=== PATIENT | female | born 1950 | race Caucasian/White ===

== ENCOUNTER 2025-06-09 21:20 | Inpatient (IN) | payer MEDICARE, SELFPAY ==
[2025-06-09 21:21] VITALS: BP 119/60; PULSE 102; RESP 18; TEMP 36.3; O2SAT 98; BMI 22.6
--- NOTE | 2025-06-09 22:15 | EKG12_ITS ---
Test Reason : HYPOTENSION Blood Pressure : */* mmHG Vent. Rate : 103 BPM Atrial Rate : 103 BPM P-R Int : 146 ms QRS Dur : 76 ms QT Int : 338 ms P-R-T Axes : 80 53 129 degrees QTcB Int : 442 ms Sinus tachycardia Septal infarct , age undetermined Abnormal ECG Confirmed by PITER LINCOLN, JOYA ([id number]), editor greeting card RIC HAIR ([id number]) on 06/10/2025 8:09:44 AM Referred By: CINDY Confirmed By: JOYA DUMAS MD
[2025-06-09 22:21] VITALS: BP 117/55; PULSE 99; RESP 16; O2SAT 98
[2025-06-09 22:42] LABS: Hematocrit 35.8 % (37-47); Hemoglobin 12.3 g/dL (12.0-15.0); Immature Granulocytes Count 0.670 X10^3/uL (0.0-0.0); Mean Corp Hgb Conc 34.4 g/dL (32-36); Mean Corpuscular Volume 95.0 fL (81-99); Mean Platelet Vol. 11.3 fl (6.2-12.0); NRBC Flagged by Analyzer 0.2 % (0-5); POSITIVE DIFFERENTIAL YES; Platelet Count 108 K/mm3 (150-450); RBC Distribution Width CV 16.0 % (11.6-14.6); RBC Distribution Width SD 56.0 fl (35.1-43.9); Red Blood Count 3.77 M/mm3 (4.2-5.4); White Blood Count 15.5 K/mm3 (4.4-11.0)
[2025-06-09] MEDS: 0.9% Normal Saline (1000mL) 1,000 ML 1000 ML IV (22:45)
[2025-06-09 22:46] LABS: Differential Indicated SCAN CRITERIA MET
--- NOTE | 2025-06-09 22:48 | RAD_ITS ---
PROCEDURE: CHEST PA AND LATERAL 06/09/2025 REASON FOR EXAM: WEAKNESS TECHNIQUE: Procedure Code: RADCXR Modality: DX Procedure: CHEST PA AND LATERAL FINDINGS: The heart is normal in size. Left upper lobe calcified granuloma. Lungs are otherwise clear. No acute osseous abnormalities. Surgical clips overlie the right chest. RAD/Chest PA and Lateral IMPRESSION: NO ACUTE FINDINGS. Reading Location: [id number]
[2025-06-09 23:00] VITALS: BP 132/59; PULSE 98; O2SAT 99
--- NOTE | 2025-06-09 23:00 | EX.ED.DYSGE1 ---
HPI History of Present Illness Chief Complaint: Hypotension Informant: patient Narrative Narrative: Patient is a 74-year-old female with history of of neuropathy, hypertension and ITP (follows with Dr. Martínez) who currently is on a steroid taper. She is presenting with worsening generalized weakness and tremor. She states that for the past 3 days she has had low blood pressures (blood pressure earlier today was 100/49). She does not have any energy and is very fatigued. She states she intermittently feels lightheaded. Denies any near syncopal episodes. notes that she does not drink much water but has been drinking sodas and coffee. She states that today her hands have been very shaky especially when she tries to do anything. She has a hard time walking and feels that her leg is going to give out on her. She denies any falls or head injuries. She denies any fevers but does report chills. Denies any chest pain, acute cough, URI symptoms, rash, abnormal bleeding, and GI or symptoms. Is currently on steroid taper as her platelets have been responding. Has been on steroids for couple months now because of her ITP. [facility] Medical History Smoker Neuropathy Hypertension Hx of bladder cancer Hx of breast cancer Home Medications ?Medication ?Instructions ?Recorded ?Last Taken ?Type amlodipine 5 mg tablet 5 mg PO DAILY 06/09/25 Unknown History dexamethasone 4 mg tablet 4 mg PO DAILY 06/09/25 Unknown History folic acid 1 mg tablet 1 mg PO DAILY 06/09/25 Unknown History gabapentin 300 mg capsule 600 mg PO QHS 06/09/25 Unknown History hydrochlorothiazide 12.5 mg tablet 12.5 mg PO DAILY 06/09/25 Unknown History hydrocodone-acetaminophen 5-325mg 1 tab PO QHS 06/09/25 Unknown History 5mg-325mg lisinopril 40 mg tablet 40 mg PO DAILY 06/09/25 Unknown History Allergy/AdvReac Type Severity Reaction Status Date / Time Sulfa (Sulfonamide Allergy Swelling Verified 06/09/25 21:21 Antibiotics) Surgical History Hx of hysterectomy Hx of mastectomy Social History Smoking Status: Current every day smoker tobacco type: cigarettes ROS ROS ED Constitutional Constitutional ED: Reports chills; Denies fever(s) or sweats Cardiovascular Cardiovascular: Denies chest pain Respiratory/Chest Respiratory/Chest: Denies cough or dyspnea Gastrointestinal Gastrointestinal: Denies nausea or vomiting Musculoskeletal Musculoskeletal: Denies arthralgias or myalgias Integumentary Denies rash Neurologic Neurologic: Reports weakness; Denies headache(s) Psychiatric Psychiatric: Denies anxiety or depression Hematologic/Lymphatic Hematologic/Lymphatic: Reports easy bruising EXAM Physical Exam Const Vital Signs: 06/09/25 21:21 06/09/25 21:36 06/09/25 22:21 Temperature 97.4 F L Temperature Source Oral Pulse Rate 102 H 99 Respiratory Rate 18 16 Respiratory Effort Short of Breath Labored Respiratory Pattern Tachypnea Blood Pressure 119/60 117/55 L Blood Pressure Mean 79 75 Pulse Ox 98 98 Oxygen Delivery Method Room Air 06/09/25 23:00 06/10/25 00:00 06/10/25 00:26 Temperature 98.5 F Temperature Source Oral Pulse Rate 98 102 H 107 H Respiratory Rate 18 16 Respiratory Effort Respiratory Pattern Blood Pressure 132/59 H 127/52 H 127/52 H Blood Pressure Mean 83 77 77 Pulse Ox 99 98 98 Oxygen Delivery Method Room Air Room Air Room Air Positive well nourished and well developed General Appearance ED: well developed and NAD HEENT Reports moist mucous membranes Neck supple Chest Wall inspection of chest normal and palpation of chest normal Resp normal respiratory effort and clear to auscultation bilaterally Cardio regular rhythm and no murmurs Rate: tachycardic GI normal to inspection, nondistended, normoactive bowel sounds and non-tender Extremity normal to inspection Neuro oriented x3 Sensorium / Orientation: alert Motor Exam: general weakness Psych mental status grossly normal Skin no rashes or lesions noted and no wounds MDM MDM MDM Narrative Medical decision making narrative: Patient Biba for chills and generalized weakness as well as low blood pressure at home this been progressive the past few days. She is steroid-dependent but currently on a taper for ITP. Denies any other real systemic symptoms. Differential includes adrenal insufficiency, sepsis, infection, hypovolemia, medication reaction, NIDHI, thyroid dysfunction and electrolyte derangement as well as primary cardiac process or pulmonary emboli. Patient is given a liter of IV fluids in the emergency room as she is mildly tachycardic and reports low blood pressures at home. CBC does show leukocytosis with left shift and mild thrombocytopenia (platelets of 108). Unclear if this is secondary to her chronic steroids or acute infection. CMP largely normal. Lactate is elevated at 2.1. High-sensitivity troponin 79 and a repeat however it is 74. D-dimer is added on given elevated troponin, hypotension and tachycardia Patient denies any shortness of breath or chest discomfort/dyspnea on exertion. This is normal for low respiration for PE. Urinalysis is highly consistent with urinary tract infection with positive nitrates, 10-25 white blood cells and 4+ bacteria. Urine culture and blood cultures are sent. Patient started on IV Rocephin given additional liter of IV fluids and given her home [place]. Suspect she has urinary tract infection possible sepsis that is causing her acute presentation. Is given a stress dose of Solu-Cortef given that she is steroid-dependent currently. Case discussed with hospitalist, Dr. Hurtado for admission. Lab Data Attestation: I reviewed the patient's lab results. Labs: Laboratory Results - last 24 hr 06/09/25 06/09/25 06/09/25 21:40 22:38 23:53 WBC 15.5 H RBC 3.77 L Hgb 12.3 Hct 35.8 L MCV 95.0 MCH 32.6 H MCHC 34.4 RDW Std Deviation 56.0 H RDW Coeff of Avinash 16.0 H Plt Count 108 L MPV 11.3 Immature Gran % (Auto) 4.300 H Neut % (Auto) 62.2 Lymph % (Auto) 20.3 [place] % (Auto) 12.6 H Eos % (Auto) 0.1 Baso % (Auto) 0.5 Absolute Neuts (auto) 9.7 H Absolute Lymphs (auto) 3.15 Nucleated RBC % 0.2 Differential Comment SCANNED Platelet Estimate SLT DEC [place] Bodies 1+ D-Dimer Quant (PE/DVT) Sodium 140 Potassium 4.0 Chloride 103 Carbon Dioxide 22.5 Anion Gap 15 BUN 50 H Creatinine 0.98 Estim Creat Clear Calc 37.27 L Est GFR (MDRD) Non-Af 61 BUN/Creatinine Ratio 50.7 H Glucose 190 H Lactic Acid 2.1 H* Calcium 8.3 Total Bilirubin 0.31 AST 26 ALT 51 H Alkaline Phosphatase 84 Troponin T High Sens 79 H* Troponin T Hi Sens 2 Hr Total Protein 6.2 Albumin 3.6 Globulin 2.5 Albumin/Globulin Ratio 1.4 TSH 2.770 Urine Color Yellow Urine Clarity Clear Urine pH 6.0 Ur Specific [place] 1.015 Urine Protein 15 H Urine Glucose (UA) Normal Urine Ketones Negative Urine Occult Blood 50 H Urine Nitrite Positive H Urine Bilirubin Negative Urine Urobilinogen 1 H Ur Leukocyte Esterase 25 H Urine RBC 0-5 SEEN Urine WBC 10-25 SEEN Ur Squamous Epith Cells 5-10 SEEN Urine Bacteria 4+ Hyaline Casts 0-5 SEEN Urine Mucus 0 SEEN 06/09/25 23:58 WBC RBC Hgb Hct MCV MCH MCHC RDW Std Deviation RDW Coeff of Avinash Plt Count MPV Immature Gran % (Auto) Neut % (Auto) Lymph % (Auto) [place] % (Auto) Eos % (Auto) Baso % (Auto) Absolute Neuts (auto) Absolute Lymphs (auto) Nucleated RBC % Differential Comment Platelet Estimate [place] Bodies D-Dimer Quant (PE/DVT) 0.47 Sodium Potassium Chloride Carbon Dioxide Anion Gap BUN Creatinine Estim Creat Clear Calc Est GFR (MDRD) Non-Af BUN/Creatinine Ratio Glucose Lactic Acid Calcium Total Bilirubin AST ALT Alkaline Phosphatase Troponin T High Sens Troponin T Hi Sens 2 Hr 74 H* Total Protein Albumin Globulin Albumin/Globulin Ratio TSH Urine Color Urine Clarity Urine pH Ur Specific [place] Urine Protein Urine Glucose (UA) Urine Ketones Urine Occult Blood Urine Nitrite Urine Bilirubin Urine Urobilinogen Ur Leukocyte Esterase Urine RBC Urine WBC Ur Squamous Epith Cells Urine Bacteria Hyaline Casts Urine Mucus Radiography Chest X-Ray - ED: 2 View, Read by ED Physician, Read by Radiologist and No Acute Disease Diagnostic Testing: Clinical Impression(s) from Imaging Studies Chest X-Ray 06/09/25 22:48 IMPRESSION: NO ACUTE FINDINGS. Reading Location: [id number] Rhythm Strip Rhythm Strip: Sinus Rhythm Rate: 103 Ectopy: None EKG Initial EKG: Attestation: I personally reviewed and interpreted this EKG as follows: Interpretation: Sinus Tachycardia Comments: Sinus tachycardia rate of 103 bpm Normal axis Normal intervals T wave inversions in V5, V6, 1 and aVL as well as inferior leads with no reciprocal changes. No prior EKG available for comparison Management Discussion w/another healthcare provider: Hospitalist Discharge Plan Dx/Rx/DC Orders Clinical Impression: Urinary tract infection, Sepsis, Generalized weakness, Steroid dependence, History of ITP, Elevated troponin level Disposition Disposition: Acute Care Hospital [facility]
[2025-06-09 23:17] LABS: AST(SGOT) 26 U/L (<=31); Alanine Aminotransfer ALT/SGPT 51 U/L (<=34); Albumin, Serum 3.6 g/dL (3.4-4.8); Alkaline Phosphatase 84 U/L (35-104); Anion Gap 15 (5-15); BUN 50 mg/dL (4-19); BUN/Creat Ratio 50.7 RATIO (10-20); Calcium,Total 8.3 mg/dL (7.6-11.0); Carbon Dioxide 22.5 mmol/L (21.0-32.0); Chloride 103 mmol/L (98-108); Estimated Creatinine Clearance 37.27 ml/min (50-250); Globulin 2.5 g/dL (2.2-4.2); Glucose 190 mg/dL (70-99); Potassium 4.0 mmol/L (3.3-5.1)
--- NOTE | 2025-06-09 23:21 | ED.RN ---
Critical lactic acid of 2.[address] Fonseca notified.
[2025-06-09 23:25] LABS: Troponin T High Sensitivity 79 ng/L (<=14)
[2025-06-09 23:27] LABS: Differential Comment SCANNED; Howell-Jolly Body 1+
[2025-06-09 23:57] LABS: Mucous, Urine 0 SEEN /hpf (<or=2+)
[2025-06-10] VITALS (9 sets, daily range): BP systolic 98–142; BP diastolic 52–76; PULSE 76–107; RESP 16–24; TEMP 36.3–36.9; O2SAT 98–100; BMI 23.2
[2025-06-10 00:04] LABS: Color, Urine Yellow (Yellow); Glucose, Dipstick Normal (Normal); Ketone-Dipstick Negative (Negative); Leukocyte Esterase-Dipstick 25 /ul (Negative); Nitrite-Dipstick Positive (Negative); Occult Blood-Urine 50 /ul (Negative); Protein-Dipstick 15 mg/dl (Negative); Specific Gravity, Urine 1.015 (1.002-1.030); Urine Bilirubin Dipstick Negative (Negative)
[2025-06-10 00:15] LABS: Red Blood Cells-Urine 0-5 SEEN /hpf (0-5); Squamous Epithelial Cells - UA 5-10 SEEN /hpf (5-10)
[2025-06-10 00:21] LABS: D-Dimer Quantitative (DVT/PE) 0.47 FEU/ug/m (0.27-0.49)
[2025-06-10 00:37] LABS: Troponin T High Sens 2 HR 74 ng/L (<=14)
[2025-06-10] MEDS: 0.9% Normal Saline (1000mL) 1,000 ML 999 ML IV (00:53)
[2025-06-10] MEDS: HYDROcodone Bitartrate/Apap 5/325 Tablet PO (00:57)
--- NOTE | 2025-06-10 01:28 | HP.PCM_ITS ---
[facility] - General General Date of Admission: 06/10/25 Date of Service: 06/10/25 Chief Complaint: Generalized weakness and tremor [facility] Narrative ASHLIE RODARTE, is a 74 F who presents to the emergency room with chief complaint of generalized weakness and tremor. Patient has significant past medical history of neuropathy, hypertension and idiopathic thrombocytopenic purpura (and is followed by Dr. Martínez). Patient has been on a recent steroid taper over the past several weeks. As a result patient is experiencing fatigue and loss of energy and intermittently feels lightheaded. The patient denies having any episodes of syncope. She complains of shakiness in her hands especially when she is intentional about moving her hands. At times she has felt as if her legs were getting give out on her due to the weakness. She denies any falls or head injuries and denies any fevers but has had some chills. Patient denies any chest pain, shortness of breath, rash or any GI or genitourinary symptoms. She has been on steroids for the past several months due to ITP when her platelets were down in the 30s. Laboratory studies reveal white blood cell count of 15.5, hemoglobin 12.3, hematocrit 35.0, platelets 108, sodium 140, potassium 4.0, chloride 103, bicarb 22.5, BUN 50, creatinine 1.98, glucose 190, lactate 2.1, troponin 79, troponin 74, TSH 2.7. Chest x-ray is negative for any acute findings, blood cultures were drawn x 2 and urinary analysis was positive for nitrites and 4+ bacteria. Patient will be admitted to the PCU and treated for urinary tract infection and suspected adrenal insufficiency. [facility] Medical History Smoker Neuropathy Hypertension Hx of bladder cancer Hx of breast cancer Home Medications ?Medication ?Instructions ?Recorded ?Last Taken ?Type amlodipine 5 mg tablet 5 mg PO DAILY 06/09/25 Unkno wn History dexamethasone 4 mg tablet 4 mg PO DAILY 06/09/25 Unkno wn History folic acid 1 mg tablet 1 mg PO DAILY 06/09/25 Unkno wn History gabapentin 300 mg capsule 600 mg PO QHS 06/09/25 Unkno wn History hydrochlorothiazide 12.5 mg tablet 12.5 mg PO DAILY Unknown History hydrocodone-acetaminophen 5-325mg 1 tab PO QHS 5 Unknown History 5mg-325mg lisinopril 40 mg tablet 40 mg PO DAILY 06/09/25 Unkn own History Allergy/AdvReac Type Severity Reaction Status Date / Time Sulfa (Sulfonamide Allergy Swelling Verified 06/09/25 21:21 Antibiotics) Surgical History Hx of hysterectomy Hx of mastectomy Social History Smoking Status: Current every day smoker tobacco type: cigarettes ROS Constitutional Constitutional: Reports chills and weakness; Denies fever(s) Eyes Eyes: Denies blurry vision ENT HEENT: Denies abnormal hearing Cardiovascular Cardiovascular: Denies chest pain or syncope Respiratory/Chest Respiratory/Chest: Denies shortness of breath at rest Gastrointestinal Gastrointestinal: Denies abdominal pain Genitourinary Genitourinary: Reports urinary frequency; Denies dysuria Musculoskeletal Musculoskeletal: Denies back pain Integumentary Integumentary: Denies dry skin Neurologic Neurologic: Denies abnormal speech Psychiatric Psychiatric: Denies anxiety Vital Signs Vital Signs Vital Signs: 06/09/25 21:21 06/09/25 21:36 06/09/25 22:21 Temperature 97.4 F L Temperature Source Oral Pulse Rate 102 H 99 Respiratory Rate 18 16 Respiratory Effort Short of Breath Labored Respiratory Pattern Tachypnea Blood Pressure 119/60 117/55 L Blood Pressure Mean 79 75 Pulse Ox 98 98 Oxygen Delivery Method Room Air 06/09/25 23:00 06/10/25 00:00 06/10/25 00:26 Temperature 98.5 F Temperature Source Oral Pulse Rate 98 102 H 107 H Respiratory Rate 18 16 Respiratory Effort Respiratory Pattern Blood Pressure 132/59 H 127/52 H 127/52 H Blood Pressure Mean 83 77 77 Pulse Ox 99 98 98 Oxygen Delivery Method Room Air Room Air Room Air 06/10/25 00:55 06/10/25 01:00 Temperature 98.5 F Temperature Source Pulse Rate 107 H 91 Respiratory Rate 16 20 H Respiratory Effort Respiratory Pattern Blood Pressure 127/52 H 113/57 L Blood Pressure Mean 77 75 Pulse Ox 98 100 Oxygen Delivery Method Room Air Weight Weight: 116 lb Body Mass Index (BMI) 22.6 Physical Exam Const alert, oriented x3 and no apparent distress General Appearance: cooperative and well developed HEENT normocephalic and head/scalp atraumatic Eyes PERRL Neck no lymphadenopathy Lymph Lymphatic: no lymphadenopathy noted Resp normal respiratory effort, normal air movement and clear to auscultation bilaterally Cardio regular rate, regular rhythm, S1 normal heart sound, S2 normal heart sound and no murmurs GI normal to inspection, nondistended, normoactive bowel sounds, soft to palpation and non-tender Extremity normal capillary refill Skin General Skin Exam: no breakdown Neuro no focal motor deficits and no sensory deficits noted Psych thought process normal, cooperative and affect normal Results Lab / Micro Data 06/09/25 21:40 06/09/25 21:40 Labs: Laboratory Results - last 24 hr 06/09/25 21:40: WBC 15.5 H, RBC 3.77 L, Hgb 12.3, Hct 35.8 L, MCV 95.0, MCH 32.6 H, MCHC 34.4, RDW Std Deviation 56.0 H, RDW Coeff of Avinash 16.0 H, Plt Count 108 L , MPV 11.3, Immature Gran % (Auto) 4.300 H, Neut % (Auto) 62.2, Lymph % (Auto) 20.3, [place] % (Auto) 12.6 H, Eos % (Auto) 0.1, Baso % (Auto) 0.5, Absolute Neuts (auto) 9.7 H, Absolute Lymphs (auto) 3.15, Nucleated RBC % 0.2, Differential Comment SCANNED, Platelet Estimate SLT DEC, [place] Bodies 1+, Sodium 140, Potassium 4.0, Chloride 103, Carbon Dioxide 22.5, Anion Gap 15, BUN 50 H, Creatinine 0.98, Estim Creat Clear Calc 37.27 L, Est GFR (MDRD) Non-Af 61, B UN/Creatinine Ratio 50.7 H, Glucose 190 H, Calcium 8.3, Total Bilirubin 0.31, AST 26, ALT 51 H, Alkaline Phosphatase 84, Troponin T High Sens 79 H*, Total Protein 6.2, Albumin 3.6, Globulin 2.5, Albumin/Globulin Ratio 1.4, TSH 2.770 06/09/25 22:38: Lactic Acid 2.1 H* 06/09/25 23:53: Urine Color Yellow, Urine Clarity Clear, Urine pH 6.0, Ur Specific [place] 1.015, Urine Protein 15 H, Urine Glucose (UA) Normal, Urine Ketones Negative, Urine Occult Blood 50 H, Urine Nitrite Positive H, Urine Bilirubin Negative, Urine Urobilinogen 1 H, Ur Leukocyte Esterase 25 H, Urine RBC 0-5 SEEN, Urine WBC 10-25 SEEN, Ur Squamous Epith Cells 5-10 SEEN, Urine Bacteria 4+, Hyaline Casts 0-5 SEEN, Urine Mucus 0 SEEN 06/09/25 23:58: D-Dimer Quant (PE/DVT) 0.47, Troponin T Hi Sens 2 Hr 74 H* Rhythm Strip Rhythm Strip: Sinus Rhythm Rate: 103 Ectopy: None Imaging Radiology Impression Chest X-Ray 06/09/25 22:48 IMPRESSION: NO ACUTE FINDINGS. Reading Location: [facility] [address] Assessment & Plan Assessment/Plan (1) Elevated troponin level: (2) History of ITP: (3) Steroid dependence: (4) Generalized weakness: (5) Sepsis: (6) Urinary tract infection: PLAN: Plan 1 urinary tract infection with sepsis?admit patient to PCU continue volume replacement, continue Rocephin 1 g IV every 24 hours, repeat CBC BMP in a.m. 2. Steroid dependence?recent steroid taper?patient to receive dose of steroids in the emergency department and then may resume current steroid taper 3. Elevated troponin?patient is asymptomatic with no chest pain at present time we will continue to cycle cardiac enzymes, will not use aspirin due to platelet disorder. If troponins increase consider cardiology consultation 4. history of ITP?continue steroids and monitor CBC 5. DVT prophylaxis?SCDs 6. CODE STATUS full verified Charges/Coding Visit Charges Inpatient E&M: 85857 Init Hosp L2
[2025-06-10 01:35] LABS: Reflex Lactate? Y
[2025-06-10] MEDS: fentaNYL 100 MCG/2 ML Ampul 25 MCG IV (01:40)
[2025-06-10 01:48] LABS: CPK Total, Creatine Kinase 35 U/L (24-195)
[2025-06-10 02:24] LABS: Troponin T High Sens 4 HR 82 ng/L (<=14)
[2025-06-10] MEDS: 0.9% Normal Saline (1000mL) 1,000 ML 125 ML IV ×3 (02:43→22:49)
--- NOTE | 2025-06-10 03:33 | NURSING ---
patient states she is very dizzy when up made her bedrest for the night. purewick in place.
[2025-06-10 06:01] LABS: Hematocrit 26.6 % (37-47); Hemoglobin 9.4 g/dL (12.0-15.0); Immature Granulocytes Count 0.520 X10^3/uL (0.0-0.0); Mean Corp Hgb Conc 35.3 g/dL (32-36); Mean Corpuscular Volume 92.7 fL (81-99); Mean Platelet Vol. 11.1 fl (6.2-12.0); NRBC Flagged by Analyzer 0.2 % (0-5); POSITIVE COUNT YES; POSITIVE DIFFERENTIAL YES; Platelet Count 73 K/mm3 (150-450); RBC Distribution Width CV 16.0 % (11.6-14.6); RBC Distribution Width SD 54.3 fl (35.1-43.9); Red Blood Count 2.87 M/mm3 (4.2-5.4); White Blood Count 12.5 K/mm3 (4.4-11.0)
[2025-06-10 06:04] LABS: Differential Indicated SCAN CRITERIA MET
[2025-06-10 06:38] LABS: Anion Gap 12 (5-15); BUN 31 mg/dL (4-19); BUN/Creat Ratio 50.5 RATIO (10-20); Calcium,Total 7.1 mg/dL (7.6-11.0); Carbon Dioxide 18.8 mmol/L (21.0-32.0); Chloride 108 mmol/L (98-108); Estimated Creatinine Clearance 45.66 ml/min (50-250); Glucose 149 mg/dL (70-99); Potassium 3.7 mmol/L (3.3-5.1)
[2025-06-10 07:21] LABS: Differential Comment SCANNED
--- NOTE | 2025-06-10 07:57 | ECHOCS_ITS ---
Reason For Study Reason For Study: Elevated Troponins Procedure This was a 2D Doppler, Color Flow transthoracic echocardiogram. The study was technically difficult. Contrast injection was performed. Exam performed portable in patient room. Left Ventricle Normal LV size. Left ventricular systolic function is normal. The left ventricular ejection fraction is 60 %. No regional wall motion abnormalities noted. Right Ventricle Normal RV size. Normal systolic function. Atria Normal left atrium. Normal right atrium. Mitral Valve Normal mitral valve. Tricuspid Valve Normal tricuspid valve. Aortic Valve Normal aortic valve. Mild (1+) aortic valve insufficiency. Pulmonic Valve Normal pulmonic valve. Great Vessels Normal aortic root. The pulmonary artery is normal size. Inferior vena cava collapse with respiration. Pericardium/Pleural No pericardial effusion. Medication Diluted definity 2ml given slow IV push to enhance endocardial definition. MMode/2D Measurements & Calculations LVIDd: 3.0 cm IVSd: 0.91 cm Ao root diam: 2.8 cm LVIDs: 2.1 cm LVPWd: 1.1 cm RVDd: 2.8 cm FS: 29.2 % LAV(MOD-bp): 43.4 ml LVAd ap4: 21.7 cm2 SV(MOD-sp4): 36.7 ml LAV(MOD-bp) Indexed: 29.1 ml/m2 LVLd ap4: 6.7 cm SI(MOD-sp4): 24.6 ml/m2 LAV(MOD-sp2): 33.6 ml EDV(MOD-sp4): 57.0 ml LAV(MOD-sp4): 42.2 ml EDV(sp4-el): 59.9 ml LVAs ap4: 11.8 cm2 LVLs ap4: 5.6 cm ESV(MOD-sp4): 20.4 ml ESV(sp4-el): 21.0 ml EF(MOD-sp4): 64.3 % EF(sp4-el): 64.9 % SV(sp4-el): 38.9 ml LA A4 area: 17.2 cm2 LA dimension(2D): 2.8 cm TAPSE: 2.4 cm Time Measurements MV dec time: 0.29 sec Doppler Measurements & Calculations MV E max nehemias: 65.9 cm/sec Lat Peak E' Nehemias: 4.2 cm/sec Med Peak E' Nehemias: 5.0 cm/sec MV A max nehemias: 95.8 cm/sec E/E' lat: 15.7 E/E' med: 13.3 MV E/A: 0.69 MV V2 max: 111.7 cm/sec MV P1/2t max nehemias: 88.0 cm/sec Ao V2 max: 119.1 cm/sec MV max P.0 mmHg MV P1/2t: 101.2 msec Ao max P.7 mmHg MV V2 mean: 57.8 cm/sec MV mean P.6 mmHg MV dec slope: 254.6 cm/sec2 MV V2 VTI: 27.4 cm MVA(P1/2t): 2.2 cm2 LV V1 max: 115.1 cm/sec PA V2 max: 129.4 cm/sec LV V1 max P.3 mmHg ECHO/Echo Complete W/ Contrast Interpretation Summary Normal LV size. Left ventricular systolic function is normal. The left ventricular ejection fraction is 60 %. Mild (1+) aortic valve insufficiency. Contrast injection was performed. Ordering Physician: Snehal Almonte Performed By: Walter Batres RCS
--- NOTE | 2025-06-10 10:15 | RAD_ITS ---
PROCEDURE: KNEE 4 OR MORE VIEWS 06/10/2025 REASON FOR EXAM: PAIN No known injury. TECHNIQUE: Procedure Code: RADKN Modality: DX Procedure: KNEE 4 OR MORE VIEWS Both left and right knees where imaged, with four view right knee and four view left knee obtained. COMPARISON: None. RAD/Knee 4 or More Views IMPRESSION: No joint effusion is seen on either side. Mild degenerative changes seen of the bilateral proximal tibiofibular articulat ion. Mild tricompartmental degenerative changes are seen bilaterally, but without significant associated joint space narrowing. The greatest degree of degenerative changes probably at the left patellofemoral articulation. Satisfactory osseous alignment is seen. No evidence of inflammatory arthritis. No fracture or dislocation is seen. Reading Location: [id number]
--- NOTE | 2025-06-10 10:15 | RAD_ITS ---
PROCEDURE: KNEE 4 OR MORE VIEWS 06/10/2025 REASON FOR EXAM: PAIN No known injury. TECHNIQUE: Procedure Code: RADKN Modality: DX Procedure: KNEE 4 OR MORE VIEWS Both left and right knees where imaged, with four view right knee and four view left knee obtained. COMPARISON: None. RAD/Knee 4 or More Views IMPRESSION: No joint effusion is seen on either side. Mild degenerative changes seen of the bilateral proximal tibiofibular articulat ion. Mild tricompartmental degenerative changes are seen bilaterally, but without significant associated joint space narrowing. The greatest degree of degenerative changes probably at the left patellofemoral articulation. Satisfactory osseous alignment is seen. No evidence of inflammatory arthritis. No fracture or dislocation is seen. Reading Location: [id number]
--- NOTE | 2025-06-10 15:34 | CASEMGMT ---
CLARA LOREDO Assessment: Face to Face with pt for initial transition planning/care coordination assessment. RN GERTRUDE introduced self and role at [facility], pt voices understanding and consents to assessment. Pt is A&O x4 and answers all questions appropriately at this time. Pt sitting up in chair in no distress. Significant other in the room, pt agreeable to DC planning with significant other in the room. Care providers, pharmacy, and demographics verified/updated. Strata: 1 Admitting Dx: UTI suspected adrenal PCP: Josef Specialists: Roblero - Arthritis; Mauricio, Hematology Preferred Pharmacy: [facility] Insurance: [place] [employer] Prescription Benefit: yes LNOK: Sig Other, Gregor Living Arrangements: Pt lives with significant other in a camper with 3 steps to enter. ADLs: Pt states I with ADLs and IADLs. Transportation: Pt drives self and denies concerns with transportation. DME: Cane, walker HHC/SNF: Denies Hx of Pt states no concerns with going home at time of dc. Pt states no further concerns/needs. CM to follow. Advised pt to ask CM if any further question/concerns/needs arise, voices understanding. Pt Goal: Home Plan: Home with family support. Maria C ELIZABETH CM
--- NOTE | 2025-06-10 16:01 | PCM.PROGNOTE ---
Subjective Subjective Patient seen and examined with her nurse by her bedside. Her was by her bdside. She was complaining of pain in her knees. She was moaning and writhing in pain. She kept saying she had knee pain, though she was able to move her legs at the knees without pain. Unable to do review of systems as she still complains of pain in the knee and was writhing in pain so couldnt really answering questions. Objective Data Objective Data Vital Signs: Vital Signs Temp Pulse Resp BP Pulse Ox O2 Del Method 97.5 F L 90 16 109/59 L 98 Room Air 06/10/25 14:55 06/10/25 14:55 06/10/25 14:55 06/10/25 14:55 06/10/25 14:55 06/10/25 14:55 Oxygen Delivery Method Room Air Weight: 118 lb 13.266 oz Body Mass Index (BMI) 23.2 Intake & Output: Intake and Output for Last 24 Hours 06/08/25 06/09/25 06/10/25 23:59 23:59 23:59 Intake Total 3350 / 3350 Balance 3350 / 3350 Lab / Micro Data 06/10/25 05:22 06/10/25 05:22 Labs: Laboratory Results - last 24 hr 06/09/25 21:38: Lactic Acid 2.1 H* 06/09/25 21:40: WBC 15.5 H, RBC 3.77 L, Hgb 12.3, Hct 35.8 L, MCV 95.0, MCH 32.6 H, MCHC 34.4, RDW Std Deviation 56.0 H, RDW Coeff of Avinash 16.0 H, Plt Count 108 L, MPV 11.3, Immature Gran % (Auto) 4.300 H, Neut % (Auto) 62.2, Lymph % (Auto) 20.3, [place] % (Auto) 12.6 H, Eos % (Auto) 0.1, Baso % (Auto) 0.5, Absolute Neuts (auto) 9.7 H, Absolute Lymphs (auto) 3.15, Nucleated RBC % 0.2, Differential Comment SCANNED, Platelet Estimate SLT DEC, [place] Bodies 1+, Sodium 140, Potassium 4.0, Chloride 103, Carbon Dioxide 22.5, Anion Gap 15, BUN 50 H, Creatinine 0.98, Estim Creat Clear Calc 37.27 L, Est GFR (MDRD) Non-Af 61, BUN/Creatinine Ratio 50.7 H, Glucose 190 H, Calcium 8.3, Total Bilirubin 0.31, AST 26, ALT 51 H, Alkaline Phosphatase 84, Troponin T High Sens 79 H*, Total Protein 6.2, Albumin 3.6, Globulin 2.5, Albumin/Globulin Ratio 1.4, TSH 2.770 06/09/25 23:53: Urine Color Yellow, Urine Clarity Clear, Urine pH 6.0, Ur Specific [place] 1.015, Urine Protein 15 H, Urine Glucose (UA) Normal, Urine Ketones Negative, Urine Occult Blood 50 H, Urine Nitrite Positive H, Urine Bilirubin Negative, Urine Urobilinogen 1 H, Ur Leukocyte Esterase 25 H, Urine RBC 0-5 SEEN, Urine WBC 10-25 SEEN, Ur Squamous Epith Cells 5-10 SEEN, Urine Bacteria 4+, Hyaline Casts 0-5 SEEN, Urine Mucus 0 SEEN 06/09/25 23:58: D-Dimer Quant (PE/DVT) 0.47, Total Creatine Kinase 35, Troponin T Hi Sens 2 Hr 74 H* 06/10/25 01:41: Lactic Acid 1.6, Troponin T Hi Sens 4Hr 82 H* 06/10/25 05:22: WBC 12.5 H, RBC 2.87 L, Hgb 9.4 L, Hct 26.6 L, MCV 92.7, MCH 32.8 H, MCHC 35.3, RDW Std Deviation 54.3 H, RDW Coeff of Avinash 16.0 H, Plt Count 73 L, MPV 11.1, Immature Gran % (Auto) 4.200 H, Neut % (Auto) 67.9, Lymph % (Auto) 15.3 L, [place] % (Auto) 12.3 H, Eos % (Auto) 0.1, Baso % (Auto) 0.2, Absolute Neuts (auto) 8.5 H, Absolute Lymphs (auto) 1.91, Nucleated RBC % 0.2, Differential Comment SCANNED, Platelet Estimate MKD DEC, Sodium 139, Potassium 3.7, Chloride 108, Carbon Dioxide 18.8 L, Anion Gap 12, BUN 31 H, Creatinine 0.61 L, Estim Creat Clear Calc 45.66 L, Est GFR (MDRD) Non-Af 95, BUN/Creatinine Ratio 50.5 H, Glucose 149 H, Calcium 7.1 L Radiography Diagnostic Testing: Radiology Impression Chest X-Ray 06/09/25 22:48 IMPRESSION: NO ACUTE FINDINGS. Reading Location: [id number] Echocardiogram 06/10/25 07:57 Interpretation Summary Normal LV size. Left ventricular systolic function is normal. The left ventricular ejection fraction is 60 %. Mild (1+) aortic valve insufficiency. Contrast injection was performed. Ordering Physician: Snehal Almonte Performed By: Walter Batres RCS Knee X-Ray 06/10/25 10:15 IMPRESSION: No joint effusion is seen on either side. Mild degenerative changes seen of the bilateral proximal tibiofibular articulation. Mild tricompartmental degenerative changes are seen bilaterally, but without significant associated joint space narrowing. The greatest degree of degenerative changes probably at the left patellofemoral articulation. Satisfactory osseous alignment is seen. No evidence of inflammatory arthritis. No fracture or dislocation is seen. Reading Location: [id number] Knee X-Ray 06/10/25 10:15 IMPRESSION: No joint effusion is seen on either side. Mild degenerative changes seen of the bilateral proximal tibiofibular articulation. Mild tricompartmental degenerative changes are seen bilaterally, but without significant associated joint space narrowing. The greatest degree of degenerative changes probably at the left patellofemoral articulation. Satisfactory osseous alignment is seen. No evidence of inflammatory arthritis. No fracture or dislocation is seen. Reading Location: [address] Rhythm Strip Rhythm Strip: Sinus Rhythm Rate: 103 Ectopy: None Physical Exam Const alert Constitutional Narrative: in moderate to severe discomfort due to pain,writhing in discomfort HEENT normocephalic, head/scalp atraumatic, moist oral mucous membranes and oropharynx normal Eyes EOMs intact bilaterally Neck supple and no JVD Resp normal respiratory effort, normal air movement and clear to auscultation bilaterally Cardio regular rate, regular rhythm, S1 normal heart sound, S2 normal heart sound and no murmurs GI normal to inspection, nondistended, normoactive bowel sounds, soft to palpation, non-tender and non-distended Extremity normal capillary refill, no clubbing, cyanosis or edema and no calf tenderness Extremity Narrative: able to flex and extend knee without any discomfort General Extremity: no tenderness to palpation of joints or extremities Skin General Skin Exam: no breakdown Neuro no focal motor deficits and no sensory deficits noted Motor Exam: general weakness Psych Psych Narrative: uncomfortable due to pain Assessment & Plan Assessment/Plan (1) History of ITP: (2) Sepsis: (3) Generalized weakness: (4) Urinary tract infection: PLAN: Plan #Sepsis due to UTI on IV ceftriaxone. Urine cultures ordered and pending. urinalysis showed 4+ bacteria blood cultures also pending wbc is also down to 12.5. #Bilateral Knee pain patient complaining of bilateral knee pain and writhing in pain. given IV morphine 1mg x 1. bilateral knee xray showed no acute pathology PT/OT On board. On PO tylenol, PO oxycodone and IV morphine prn for pain. #Thrombocytopenia: platelets were 108 yesterday, and are down to 73. Will monitor closely. Etiology is unclear. Will monitor closely. If it drops any further will consider hematology consult #Elevated troponin: Initial troponin was 79, and trended up slightly to 82. Denies any chest pain. 2D echo showed EF of 60% with normal LVSF and normal LV size. No need for further workup. #Hypertension: on lisinopril, amlodipine and HCTZ. DVT prophylaxis: SCDs. No anticoagulation due to thrombocytopenia Charges/Coding Visit Charges Inpatient E&M: 54741 Subs Hosp L2
--- NOTE | 2025-06-10 16:17 | CASEMGMT ---
Henri from [facility] called and asked medical questions about pt, he received info from our admissions. RN CM addressed questions.
[2025-06-11 04:16] VITALS: BP 146/75; PULSE 88; RESP 18; TEMP 36.7; O2SAT 99
[2025-06-11 06:18] LABS: Hematocrit 25.2 % (37-47); Hemoglobin 8.9 g/dL (12.0-15.0); Mean Corp Hgb Conc 35.3 g/dL (32-36); Mean Corpuscular Volume 93.3 fL (81-99); Mean Platelet Vol. 11.4 fl (6.2-12.0); POSITIVE COUNT YES; POSITIVE MORPHOLOGY YES; Platelet Count 63 K/mm3 (150-450); RBC Distribution Width CV 16.0 % (11.6-14.6); RBC Distribution Width SD 54.6 fl (35.1-43.9); Red Blood Count 2.70 M/mm3 (4.2-5.4); White Blood Count 9.4 K/mm3 (4.4-11.0)
[2025-06-11 06:22] LABS: Differential Indicated MANUAL DIFF
[2025-06-11] MEDS: 0.9% Normal Saline (1000mL) 1,000 ML 125 ML IV (06:49)
[2025-06-11 06:50] LABS: Neutrophil-Band 2 % (0-5); Neutrophil-Segmented 66 % (47-70); Total Cells Counted 100 (MANUAL DIFF)
[2025-06-11 06:54] LABS: Anisocytosis 1+; Tear Drop Cell RARE
[2025-06-11 07:10] LABS: Anion Gap 10 (5-15); BUN 16 mg/dL (4-19); BUN/Creat Ratio 33.1 RATIO (10-20); Calcium,Total 7.3 mg/dL (7.6-11.0); Carbon Dioxide 19.2 mmol/L (21.0-32.0); Chloride 109 mmol/L (98-108); Estimated Creatinine Clearance 45.66 ml/min (50-250); Glucose 97 mg/dL (70-99); Potassium 3.8 mmol/L (3.3-5.1)
[2025-06-11 08:10] VITALS: BP 142/101; PULSE 85; RESP 18; TEMP 35.9; O2SAT 98
[2025-06-11 11:36] VITALS: O2SAT 99
[2025-06-11 12:20] VITALS: BP 127/57; PULSE 85; RESP 18; TEMP 36.7; O2SAT 100
--- NOTE | 2025-06-11 12:40 | PN_ITS ---
Subjective Subjective Patient seen and examined. She says she feels much better today. She had no active complaints. Her knee pain had improved. However she would like 1 more day to be better optimized. Review of systems otherwise negative. She has remained hemodynamically stable. Objective Data Objective Data Vital Signs: Vital Signs Temp Pulse Resp BP Pulse Ox O2 Del Method 98.0 F 85 18 127/57 H 100 Room Air 06/11/25 12:20 06/11/25 12:20 06/11/25 12:20 06/11/25 12:20 06/11/25 12:20 06/11/25 12:20 Oxygen Delivery Method Room Air Weight: 118 lb 13.266 oz Body Mass Index (BMI) 23.2 Intake & Output: Intake and Output for Last 24 Hours 06/09/25 06/10/25 06/11/25 23:59 23:59 23:59 Intake Total 4900 / 4900 1452.5 / 1452.5 Balance 4900 / 4900 1452.5 / 1452.5 Lab / Micro Data 06/11/25 05:27 06/11/25 05:27 Labs: Laboratory Results - last 24 hr 06/11/25 05:27: WBC 9.4, RBC 2.70 L, Hgb 8.9 L, Hct 25.2 L, MCV 93.3, MCH 33.0 H , MCHC 35.3, RDW Std Deviation 54.6 H, RDW Coeff of Avinash 16.0 H, Plt Count 63 L, MPV 11.4, Neut % (Auto) Not Reportable, Absolute Neuts (auto) 6.4, Absolute Lymphs (auto) 1.79, Total Counted 100, Neutrophils % (Manual) 66, Band Neutrophils % 2, Lymphocytes % (Manual) 19, Monocytes % (Manual) 10, M etamyelocytes % 3 H, Diff Path Review May foll, Platelet Estimate MOD DEC, Anisocytosis 1+, Tear Drop Cells RARE, Ovalocytes 1+, Sodium 138, Potassium 3.8, Chloride 109 H, Carbon Dioxide 19.2 L, Anion Gap 10, BUN 16, Creatinine 0.49 L, Estim Creat Clear Calc 45.66 L, Est GFR (MDRD) Non-Af 100, BUN/Creatinine Ratio 33.1 H, Glucose 97, Calcium 7.3 L Micro: Microbiology 06/09/25 23:53 Urine, Clean Catch Urine Culture - Preliminary Gram negative kelly Rhythm Strip Rhythm Strip: Sinus Rhythm Rate: 103 Ectopy: None Physical Exam Const alert, oriented x3 and no apparent distress General Appearance: cooperative and well developed HEENT normocephalic, head/scalp atraumatic, moist oral mucous membranes and oropharynx normal Eyes PERRL and EOMs intact bilaterally Neck no lymphadenopathy, supple and no JVD Lymph Lymphatic: no lymphedema noted Resp normal respiratory effort, normal air movement and clear to auscultation bilaterally Cardio regular rate, regular rhythm, S1 normal heart sound, S2 normal heart sound and no murmurs GI normal to inspection, nondistended, normoactive bowel sounds, soft to palpation, non-tender and non-distended Extremity normal capillary refill, no clubbing, cyanosis or edema and no calf tenderness Extremity Narrative: able to flex and extend knee without any discomfort General Extremity: no tenderness to palpation of joints or extremities Skin General Skin Exam: no breakdown Neuro no focal motor deficits and no sensory deficits noted Motor Exam: general weakness Psych thought process normal, cooperative and affect normal Assessment & Plan Assessment/Plan (1) History of ITP: (2) Sepsis: (3) Generalized weakness: (4) Urinary tract infection: PLAN: Plan #Sepsis due to UTI * on IV ceftriaxone. Urine cultures ordered and pending. * urinalysis showed 4+ bacteria * blood cultures also pending * wbc further down to 9.4 today. * #Bilateral Knee pain * p bilateral knee pain is much better and is resolved. * bilateral knee xray showed no acute pathology * PT/OT On board. On PO tylenol, PO oxycodone and IV morphine prn for pain. * #Thrombocytopenia: * platelets were 108 on admission and is now down to 63. We do not have any previous platelets to review so true baseline is unclear. * Not on any blood thinners. * etiology is unclear. Will check for schistocytes. Kidney function is normal. * May be due to ITP. Will monitor and consult hematology if platelets drop any further * Not on any meds that can cause of thrombocytopenia. #Elevated troponin: Initial troponin was 79, and trended up slightly to 82. Denies any chest pain. 2D echo showed EF of 60% with normal LVSF and normal LV size. No need for further workup. #Hypertension: on lisinopril, amlodipine and HCTZ. DVT prophylaxis: SCDs. No anticoagulation due to thrombocytopenia Charges/Coding Visit Charges Inpatient E&M: 20842 Subs Hosp L2
[2025-06-11 15:58] VITALS: BP 148/65; PULSE 94; RESP 14; TEMP 36.4; O2SAT 99
[2025-06-11 22:06] VITALS: BP 169/74; PULSE 90; RESP 18; TEMP 36.4; O2SAT 96
[2025-06-12 03:41] VITALS: BP 145/82; PULSE 93; RESP 18; TEMP 36.4; O2SAT 98
[2025-06-12 05:54] LABS: Hematocrit 28.1 % (37-47); Hemoglobin 9.9 g/dL (12.0-15.0); Mean Corp Hgb Conc 35.2 g/dL (32-36); Mean Corpuscular Volume 92.4 fL (81-99); Mean Platelet Vol. 10.8 fl (6.2-12.0); POSITIVE COUNT YES; POSITIVE MORPHOLOGY YES; Platelet Count 62 K/mm3 (150-450); RBC Distribution Width CV 15.9 % (11.6-14.6); RBC Distribution Width SD 53.9 fl (35.1-43.9); Red Blood Count 3.04 M/mm3 (4.2-5.4); White Blood Count 9.8 K/mm3 (4.4-11.0)
[2025-06-12 06:04] LABS: Differential Indicated MANUAL DIFF
[2025-06-12 06:11] LABS: Anion Gap 12 (5-15); BUN 20 mg/dL (4-19); BUN/Creat Ratio 36.5 RATIO (10-20); Calcium,Total 8.2 mg/dL (7.6-11.0); Carbon Dioxide 21.5 mmol/L (21.0-32.0); Chloride 104 mmol/L (98-108); Estimated Creatinine Clearance 45.66 ml/min (50-250); Glucose 122 mg/dL (70-99); Potassium 3.5 mmol/L (3.3-5.1)
[2025-06-12 07:39] LABS: Neutrophil-Segmented 54 % (47-70); Total Cells Counted 100 (MANUAL DIFF)
[2025-06-12 07:42] LABS: Polychromasia RARE
[2025-06-12 09:57] VITALS: BP 121/55; PULSE 80; RESP 16; TEMP 36.3; O2SAT 99
--- NOTE | 2025-06-12 13:33 | DCINST_ITS ---
Discharge Instructions DC O2, CPAP, BIPAP needs Home O2 Discharge instructions: No Dressing / Incision Discharge Activity: Return to Normal Activity Weight Bearing Status: Weight bearing as tolerated Dressing / Incision Call your doctor if you observe: Fever of 101 or Higher, Shortness of breath, Dizziness, Swelling in the ankles and Chest pain Follow Up Care Test Results: Test results from this visit will be discussed in further detail at your follow- up appointment, if applicable. Discharge Plan Admission Admit Date/Time: 06/10/25 01:42 Primary Reason for Your Visit: UTI Attending Provider: Snehal Almonte Primary Care Provider: Ryan Bahena Consulting Providers: Vladimir Hurtado Instructions Patient Instructions: ED UTIs Women Additional Instructions / Restrictions: follow up with PCP for repeat CBC to monitor platelets within one week. Discharge Orders/Prescriptions Prescriptions: New cefdinir 300 mg capsule 300 mg PO BID Qty: 10 0RF oxycodone 5 mg tablet 5 mg PO Q6H PRN (Reason: pain) 5 Days Qty: 20 0RF Continued lisinopril 40 mg tablet 40 mg PO DAILY hydrochlorothiazide 12.5 mg tablet 12.5 mg PO DAILY amlodipine 5 mg tablet 5 mg PO DAILY hydrocodone-acetaminophen 5-325 mg tablet 1 tab PO QHS gabapentin 300 mg capsule 600 mg PO QHS folic acid 1 mg tablet 1 mg PO DAILY dexamethasone 4 mg tablet 4 mg PO DAILY Referrals / Follow Up: Ryan Bahena MD [Primary Care Provider, Family Practice] - Within 1 Week Disposition Disposition (needs filled in before D/C Order can be placed): Home, Self Care
--- NOTE | 2025-06-12 13:34 | DS.PCM_ITS ---
Providers Date of Admission: 06/10/25 Date of Discharge: 06/12/25 Primary Care Physician: Dr. Ryan Bahena MD Reason For Visit: URINARY TRACT INFECTION SUSPECTED ADRENAL Diagnosis Discharge Diagnosis (1) History of ITP: Status: Acute Code(s): Z86.2 - Personal history of diseases of the blood and blood-forming organs and certain disorders involving the immune mechanism (2) Sepsis: Status: Acute Code(s): A41.9 - Sepsis, unspecified organism (3) Generalized weakness: Status: Acute Code(s): R53.1 - Weakness (4) Urinary tract infection: Status: Acute Code(s): N39.0 - Urinary tract infection, site not specified Plan #Sepsis due to UTI * on IV ceftriaxone. Urine cultures ordered and pending. * urinalysis showed 4+ bacteria * blood cultures also pending * wbc further down to 9.4 today. * #Bilateral Knee pain * p bilateral knee pain is much better and is resolved. * bilateral knee xray showed no acute pathology * PT/OT On board. On PO tylenol, PO oxycodone and IV morphine prn for pain. * #Thrombocytopenia: * platelets were 108 on admission and is now down to 63. We do not have any previous platelets to review so true baseline is unclear. * Not on any blood thinners. * etiology is unclear. Will check for schistocytes. Kidney function is normal. * May be due to ITP. Will monitor and consult hematology if platelets drop any further * Not on any meds that can cause of thrombocytopenia. #Elevated troponin: Initial troponin was 79, and trended up slightly to 82. Denies any chest pain. 2D echo showed EF of 60% with normal LVSF and normal LV size. No need for further workup. #Hypertension: on lisinopril, amlodipine and HCTZ. DVT prophylaxis: SCDs. No anticoagulation due to thrombocytopenia Medications at Discharge Home Medications amlodipine 5 mg tablet 5 mg PO DAILY blood pressure 06/09/25 dexamethasone 4 mg tablet 4 mg PO DAILY inflammation 06/09/25 folic acid 1 mg tablet 1 mg PO DAILY supplement 06/09/25 gabapentin 300 mg capsule 600 mg PO QHS nerve pain 06/09/25 hydrochlorothiazide 12.5 mg tablet 12.5 mg PO DAILY diruetic 06/09/25 hydrocodone-acetaminophen 5-325mg 5mg-325mg 1 tab PO QHS pain 06/09/25 lisinopril 40 mg tablet 40 mg PO DAILY blood pressure 06/09/25 cefdinir 300 mg capsule 300 mg PO BID #10 caps 06/12/25 oxycodone 5 mg tablet 5 mg PO Q6H PRN pain 5 days #20 tabs 06/12/25 Hospital Course Operations None Procedures None Summary of Care Provided Minutes Spent on Discharge: 38 Hospital Course: Patient is a 74-year-old female with past medical history as outlined was admitted to the ED on 06/10/2025 with complaint of generalized weakness and tremors. She also had a history of ITP and had recently been on a prednisone taper. He complained of fatigue and loss of energy as well as feeling lightheaded and weak. She denied any syncope. She felt like her legs were giving out due to her weakness. She had no other complaints. On admission urinalysis showed evidence of UTI. Blood cultures were drawn. Chest x-ray showed no acute cardiopulmonary pathology. She was admitted to be managed for acute UTI and debility and weakness. She was hydrated with IV fluids and placed on IV ceftriaxone. Hospital course was complicated by patient complaining of severe bilateral knee pain. However imaging done was negative for any fracture or osteoarthritis or acute pathology in the knees. The pain subsequently resolved and she did well with therapy. Urine cultures grew Escherischia fergusonii which was pansensitive. Blood cultures were negative. She remained stable and was discharged home on 06/12/2025 on p.o. cefdinir for a 5-day course. She was also discharged on p.o. oxycodone 5 mg every 6 hours as needed for total of 20 tablets for 5 days. OARRS score was checked and no red flags were seen. She is follow-up with her primary care doctor within 1 to 2 weeks. Patient seen and examined prior to discharge. She had no active complaints. Review of systems otherwise negative. Labs and vitals reviewed. Medication reviewed and reconciled. Physical Exam Const alert, oriented x3 and no apparent distress General Appearance: cooperative, comfortable, well kempt and well developed Orientation / Consciousness: awake HEENT normocephalic, head/scalp atraumatic, hearing grossly normal bilaterally, moist oral mucous membranes and oropharynx normal Mouth: oral and palatal mucosa normal Eyes EOMs intact bilaterally and conjunctivae normal Neck supple and no JVD Lymph Lymphatic: no lymphedema noted Resp normal respiratory effort, normal air movement and clear to auscultation bilaterally Cardio regular rate, regular rhythm, S1 normal heart sound, S2 normal heart sound and no murmurs GI normal to inspection, nondistended, normoactive bowel sounds, soft to palpation, non-tender and non-distended Extremity normal to inspection, full ROM, normal capillary refill, no clubbing, cyanosis or edema and no calf tenderness General Extremity: no tenderness to palpation of joints or extremities Skin no rashes or lesions noted General Skin Exam: no breakdown Neuro oriented x3, CN's II-XII intact bilaterally, moves all extremities and no focal motor deficits Sensorium / Orientation: awake and alert Motor Exam: general weakness Psych thought process normal, cooperative and affect normal Weight / BMI Weight Weight: 118 lb 13.266 oz Body Mass Index (BMI) 23.2 ABG / Lab / Microbiology Data 06/12/25 05:28 06/12/25 05:28 Laboratory: Laboratory Results - last 24 hr 06/12/25 05:28: WBC 9.8, RBC 3.04 L, Hgb 9.9 L, Hct 28.1 L, MCV 92.4, MCH 32.6 H , MCHC 35.2, RDW Std Deviation 53.9 H, RDW Coeff of Avinash 15.9 H, Plt Count 62 L, MPV 10.8, Neut % (Auto) Not Reportable, Absolute Neuts (auto) 5.3, Absolute Lymphs (auto) 2.94, Total Counted 100, Neutrophils % (Manual) 54, Lymphocytes % (Manual) 30, Monocytes % (Manual) 12 H, Basophils % (Manual) 1, Metamyelocytes % 2 H, Myelocytes % 1 H, Diff Path Review TNP, Platelet Estimate MOD DEC, Polychromasia RARE, Sodium 137, Potassium 3.5, Chloride 104, Carbon Dioxide 21.5, Anion Gap 12, BUN 20 H, Creatinine 0.54 L, Estim Creat Clear Calc 45.66 L, Est GFR (MDRD) Non-Af 98, BUN/Creatinine Ratio 36.5 H, Glucose 122 H, Calcium 8.2 Microbiology: Microbiology 06/10/25 00:34 Blood Culture (Wb) - Anticubital Left Blood Culture - Preliminary No growth in 48 hours. 06/09/25 23:53 Urine, Clean Catch Urine Culture - Final Escherichia fergusonii D/C Instructions Discharge Activity: Return to Normal Activity Weight Bearing Status: Weight bearing as tolerated Call your doctor if you observe: Fever of 101 or Higher, Shortness of breath, Dizziness, Swelling in the ankles and Chest pain DC O2, CPAP, BIPAP Needs Home O2 Discharge instructions: No DC home with Oxygen: No Meaningful Use Info Meaningful Use Meaningful Use Diagnoses (Choose all that apply): None applicable Discharge Plan Admission Admit Date/Time: 06/10/25 01:42 Primary Reason for Your Visit: UTI Attending Provider: Snehal Almonte Primary Care Provider: Ryan Bahena Consulting Providers: Vladimir Hurtado Instructions Patient Instructions: ED UTIs Women Additional Instructions / Restrictions: follow up with PCP for repeat CBC to monitor platelets within one week. Discharge Orders/Prescriptions Prescriptions: New cefdinir 300 mg capsule 300 mg PO BID Qty: 10 0RF oxycodone 5 mg tablet 5 mg PO Q6H PRN (Reason: pain) 5 Days Qty: 20 0RF Continued lisinopril 40 mg tablet 40 mg PO DAILY hydrochlorothiazide 12.5 mg tablet 12.5 mg PO DAILY amlodipine 5 mg tablet 5 mg PO DAILY hydrocodone-acetaminophen 5-325 mg tablet 1 tab PO QHS gabapentin 300 mg capsule 600 mg PO QHS folic acid 1 mg tablet 1 mg PO DAILY dexamethasone 4 mg tablet 4 mg PO DAILY Referrals / Follow Up: Ryan Bahena MD [Primary Care Provider, Family Practice] - Within 1 Week Disposition Disposition (needs filled in before D/C Order can be placed): Home, Self Care Charges/Coding Visit Charges Inpatient E&M: 40225 Disch Hosp >30min
[2025-06-12 14:05] VITALS: BP 145/82; PULSE 109; RESP 18; TEMP 36.6; O2SAT 98
--- NOTE | 2025-06-12 14:26 | CASEMGMT ---
CLARA LOREDO NOTE: Discharge order is in. PT/OT notes reviewed, additional therapy recommended. RN CM to room. Pt sitting up in room, sig other in room w/pt. Pt made aware of therapy's recommendations. Pt declines wanting HHC or OP therapy, stating she just wants to rest once getting home and her sig other can assist, as needed. They were made aware Rx's have been sent to [facility]. Sig other states he can pick them up today. They deny having further discharge needs or concerns. Sujit TYSONN CLARA CM
== END 2025-06-12 15:33 | disposition home or self-care (01) | DRG 690 ==
LOC: ED 06-10 00:53 → PCU 06-10 01:52
PROVIDERS: Admitting Provider Family Medicine; Emergency Provider Emergency Medicine; PCP Family Medicine; Visit Provider Student in an Organized Health Care Education/Training Program
DX: N39.0 Urinary tract infection, site not specified (principal); D69.6 Thrombocytopenia, unspecified; I10 Essential (primary) hypertension; F17.210 Nicotine dependence, cigarettes, uncomplicated; Z79.899 Other long term (current) drug therapy
CPT/HCPCS: 36415; 71046; 73564; 80048; 80053; 81001; 82550; 83605; 84443; 84484; 85025; 85379; 87040; 87077; 87086; 87088; 87186; 93005; 93306; 97162; 97166; 97530; 99285; Q9957; A4216; C8929

== ENCOUNTER 2025-06-24 13:30 | Inpatient (IN) | payer MEDICARE, SELFPAY ==
[2025-06-24] VITALS (16 sets, daily range): BP systolic 127–154; BP diastolic 59–83; PULSE 83–108; RESP 15–24; TEMP 36.2–37; O2SAT 86–100; BMI 23.8; BMI 23.6
--- NOTE | 2025-06-24 14:00 | CT_ITS ---
PROCEDURE: CTA CHEST W/WO CONTRAST 06/24/2025 REASON FOR EXAM: SHORTNESS OF BREATH TECHNIQUE: Procedure Code: [id number] Modality: CT Procedure: CTA CHEST W/WO CONTRAST Multiplanar Sagittal and Coronal images were obtained. One or more dose reduction techniques were used (e.g., Automated exposure control, adjustment of the mA and/or kV according to patient size, use of iterative reconstruction technique). FINDINGS: The peripheral soft tissues are unremarkable. No acute osseous abnormalities. Degenerative changes of the spine. Mild atherosclerosis. Normal caliber thoracic aorta. Coronary artery calcifications are present. No suspicious mediastinal lymphadenopathy. Left lower lobe segmental pulmonary artery filling defects (series 2, image 82 of 249). No evidence of right heart strain. Small right pleural effusion. Trace left pleural effusion. Left upper lobe calcified granuloma. Mild centrilobular emphysema. CT/CTA Chest W/WO Contrast IMPRESSION: Left lower lobe segmental pulmonary emboli without CT evidence of right heart s train. Small right pleural effusion. Trace left pleural effusion. Mild centrilobular emphysema. Coronary artery calcifications consistent with coronary atherosclerosis. No acute aortic pathology or mediastinal lymphadenopathy. Critical results were communicated to Dr. Venkatesh Medley at 3:20 p.m.. Reading Location: [id number]
--- NOTE | 2025-06-24 14:00 | EKG12_ITS ---
Test Reason : SOB Blood Pressure : */* mmHG Vent. Rate : 112 BPM Atrial Rate : 112 BPM P-R Int : 154 ms QRS Dur : 72 ms QT Int : 328 ms P-R-T Axes : 76 59 92 degrees QTcB Int : 447 ms Sinus tachycardia Septal infarct (cited on or before 09-Jun-2025) Abnormal ECG Confirmed by PITER LINCOLN, JOYA ([id number]), purchasing expeditor MAXINE RIVAS ([id number]) on 06/25/2025 10:54:00 AM Referred By: TB Confirmed By: JOYA DUMAS MD
--- NOTE | 2025-06-24 14:02 | ED.VIS.DYS ---
HPI History of Present Illness Chief Complaint: Shortness of Breath Narrative Narrative: 74-year-old female past medical history of ITP, low platelets, and anemia presents with shortness of breath that she has had for the last 4 nights. She denies any fevers or chills, no cough, no history of COPD or CHF although she is a smoker. She states that she has had dyspnea on exertion as well as orthopnea. She does not wear oxygen at home. She has remote history of breast carcinoma as well. Her crutch maker/oncologist is Dr. Martínez. She states that she has had increasing shortness of breath that is worsening as the days go on. [facility] Medical History Elevated troponin level History of ITP Steroid dependence Generalized weakness Smoker Neuropathy Hypertension Hx of bladder cancer Hx of breast cancer Home Medications ?Medication ?Instructions ?Recorded ?Last Taken ?Type amlodipine 5 mg tablet 5 mg PO DAILY blood pressure 06/09/25 Unknown History dexamethasone 4 mg tablet 4 mg PO DAILY inflammation 06/09/25 Unknown History folic acid 1 mg tablet 1 mg PO DAILY supplement 06/09/25 Unknown History gabapentin 300 mg capsule 600 mg PO QHS nerve pain 06/09/25 Unknown History hydrochlorothiazide 12.5 mg tablet 12.5 mg PO DAILY diruetic 06/09/25 Unknown History hydrocodone-acetaminophen 5-325mg 1 tab PO QHS pain 06/09/25 Unknown History 5mg-325mg lisinopril 40 mg tablet 40 mg PO DAILY blood pressure 06/09/25 Unknown History cefdinir 300 mg capsule 300 mg PO BID #10 caps 06/12/25 Unknown Rx oxycodone 5 mg tablet 5 mg PO Q6H PRN pain 5 days #20 06/12/25 Unknown Rx tabs Allergy/AdvReac Type Severity Reaction Status Date / Time Sulfa (Sulfonamide Allergy Swelling Verified 06/24/25 13:31 Antibiotics) Surgical History Hx of hysterectomy Hx of mastectomy Social History Smoking Status: Current every day smoker tobacco type: cigarettes ROS ROS ED ROS Narrative Review of systems positive for shortness of breath and dyspnea on exertion, mild orthopnea. History of anemia and ITP. Denies any fevers or chills, no cough, no leg swelling. Smoker. EXAM Physical Exam Narrative Exam Narrative: Afebrile. Vital signs noted. Nontoxic-appearing. Cardiovascular examination reveals a regular tachycardia. Lungs are clear to auscultation bilaterally without wheezing, moving a good amount of air. Abdomen is soft and nontender. No appreciable pedal edema bilaterally. Neurological examination nonfocal, nonlateralizing. Mild pallor of skin. Const Vital Signs: 06/24/25 13:31 06/24/25 13:31 06/24/25 13:33 Temperature 98.6 F Temperature Source Oral Pulse Rate 105 H Respiratory Rate 24 H Respiratory Effort Short of Breath Respiratory Depth Normal Respiratory Pattern Normal Blood Pressure 127/72 H Blood Pressure Mean 90 Pulse Ox 86 93 Oxygen Delivery Method Room Air Room Air Nasal Cannula Oxygen Flow Rate (L/min) 2 06/24/25 14:31 06/24/25 14:31 06/24/25 15:00 Temperature Temperature Source Pulse Rate 92 108 H Respiratory Rate 18 19 H Respiratory Effort Respiratory Depth Respiratory Pattern Blood Pressure 128/78 H 150/81 H Blood Pressure Mean 94 104 Pulse Ox 95 94 Oxygen Delivery Method Room Air Nasal Cannula Room Air Oxygen Flow Rate (L/min) 2 06/24/25 15:50 06/24/25 15:57 06/24/25 16:00 Temperature Temperature Source Pulse Rate 105 H Respiratory Rate 18 Respiratory Effort Respiratory Depth Respiratory Pattern Blood Pressure 143/63 H Blood Pressure Mean 88 Pulse Ox 89 100 100 Oxygen Delivery Method Room Air Nasal Cannula Nasal Cannula Oxygen Flow Rate (L/min) 2 2 MDM MDM MDM Narrative Medical decision making narrative: Differential diagnosis includes but not limited to anemia requiring transfusion as a source of her difficulty breathing. COPD, CHF, pulmonary embolism also part of the differential diagnosis. Given her tachycardia, CT of the chest will be obtained. She initially was hypoxic on room air and placed on nasal cannula, but during history and physical, she remove the nasal cannula and is satting 92 to 93%. EKG obtained and interpreted by myself independently as sinus tachycardia at [address] changes. No STEMI. No significant change from previous EKG dated June 09, 2025. I reviewed her laboratory work and she has normal white count of 7.8, hemoglobin 7.1. However, it is not below the 7.0 threshold where she requires immediate transfusion. Hematocrit 21.9, platelet count improved to 120 but when compared to prior labs she has chronic thrombocytopenia. Feel this is probably from her ITP. Sodium normal at 141 with potassium 4.0, BUN normal at 14 with creatinine low at 0.64, glucose appropriately elevated at 109 with normal anion gap of 12. BNP slightly elevated at 1266. I did review her prior inpatient visit from the end of May, approximately 2 weeks ago when she had an echocardiogram with an ejection fraction of 65%. I received a call from the radiologist regarding the CTA of the chest and she does have left lower lobe segmental pulmonary emboli. There is no evidence of right heart strain. She has a small right pleural effusion and trace left pleural effusion. I discussed with her the risk of anticoagulation. Given her initial hypoxia, and that she was ambulated on pulse ox as well, and she desaturated to 83% on room air. I will discuss patient with Dr. Rosy Resendez for admission. She suggested that the patient be started on a heparin drip with bolus, and requested 1 unit of PRBCs given her severe anemia. Disposition is admit to the PCU in stable condition. History & Record Review Discussion w/independent historian: Patient and Family Additional record(s) reviewed:: Prior inpatient record (Echocardiogram with a EF of 65%) Lab Data Attestation: I reviewed the patient's lab results. Labs: Laboratory Results - last 24 hr 06/24/25 14:10 WBC 7.8 RBC 2.20 L Hgb 7.1 L Hct 21.9 L MCV 99.5 H MCH 32.3 H MCHC 32.4 RDW Std Deviation 61.9 H RDW Coeff of Avinash 17.9 H Plt Count 120 L MPV 11.3 Neut % (Auto) Not Reportable Absolute Neuts (auto) 4.7 Absolute Lymphs (auto) 1.90 Total Counted 100 Neutrophils % (Manual) 56 Band Neutrophils % 5 Lymphocytes % (Manual) 24 Monocytes % (Manual) 10 Metamyelocytes % 3 H Myelocytes % 2 H Platelet Estimate ADEQUATE RBC Morphology NORM C+C Sodium 141 Potassium 4.0 Chloride 105 Carbon Dioxide 24.0 Anion Gap 12 BUN 14 Creatinine 0.64 L Estim Creat Clear Calc 49.66 L Est GFR (MDRD) Non-Af 94 BUN/Creatinine Ratio 22.4 H Glucose 109 H Calcium 8.4 Iron 33 L Iron Saturation 15.7 Unsaturated IBC 180 L Troponin T High Sens 31 H D NT pro BNP II 1266 H Radiography Diagnostic Testing: Clinical Impression(s) from Imaging Studies Chest CTA 06/24/25 14:00 IMPRESSION: Left lower lobe segmental pulmonary emboli without CT evidence of right heart strain. Small right pleural effusion. Trace left pleural effusion. Mild centrilobular emphysema. Coronary artery calcifications consistent with coronary atherosclerosis. No acute aortic pathology or mediastinal lymphadenopathy. Critical results were communicated to Dr. Venkatesh Medley at 3:20 p.m.. Reading Location: [address] Discharge Plan Dx/Rx/DC Orders Clinical Impression: Dyspnea, Pulmonary emboli, Pleural effusion, Elevated brain natriuretic peptide (BNP) level, Hypoxia Disposition Disposition: Acute Care [facility]
[2025-06-24 14:33] LABS: Hematocrit 21.9 % (37-47); Hemoglobin 7.1 g/dL (12.0-15.0); Mean Corp Hgb Conc 32.4 g/dL (32-36); Mean Corpuscular Volume 99.5 fL (81-99); Mean Platelet Vol. 11.3 fl (6.2-12.0); POSITIVE COUNT YES; POSITIVE MORPHOLOGY YES; Platelet Count 120 K/mm3 (150-450); RBC Distribution Width CV 17.9 % (11.6-14.6); RBC Distribution Width SD 61.9 fl (35.1-43.9); Red Blood Count 2.20 M/mm3 (4.2-5.4); White Blood Count 7.8 K/mm3 (4.4-11.0)
[2025-06-24 14:34] LABS: Differential Indicated MANUAL DIFF
[2025-06-24 14:55] LABS: Neutrophil-Band 5 % (0-5); Neutrophil-Segmented 56 % (47-70); Red Cell Morphology NORM C+C NORMAL (NORM C&C); Total Cells Counted 100 (MANUAL DIFF)
[2025-06-24 15:06] LABS: Anion Gap 12 (5-15); BUN 14 mg/dL (4-19); BUN/Creat Ratio 22.4 RATIO (10-20); Calcium,Total 8.4 mg/dL (7.6-11.0); Carbon Dioxide 24.0 mmol/L (21.0-32.0); Chloride 105 mmol/L (98-108); Estimated Creatinine Clearance 49.66 ml/min (50-250); Glucose 109 mg/dL (70-99); Potassium 4.0 mmol/L (3.3-5.1); Pro- Brain NATRIURETIC PEPTIDE 1266 pg/mL (<=900)
[2025-06-24 16:37] LABS: Iron 33 ug/dL (50-170); Iron Binding Capacity,Unsat 180 ug/dL (228-428); Troponin T High Sensitivity 31 ng/L (<=14)
--- NOTE | 2025-06-24 16:50 | ECHOL_ITS ---
Reason For Study Reason For Study: PULMONARY EMBOLISM Procedure This was a limited 2D transthoracic echocardiogram. Myocardial strain analysis was performed in this exam to aid in the assessment of cardiac function. The patient was scanned supine. Exam performed portable in patient room. Left Ventricle Normal LV size. Left ventricular systolic function is normal. The left ventricular ejection fraction is 60 %. Stage 1 diastolic dysfunction. No regional wall motion abnormalities noted. Right Ventricle Normal RV size. Normal systolic function. Atria Normal left atrium. Normal right atrium. Mitral Valve Normal mitral valve. Tricuspid Valve Normal tricuspid valve. Mild (1+) tricuspid valve insufficiency. Pulmonary artery systolic pressure is 27 mmHg. Aortic Valve Trisinus/trileaflet aortic valve. Pulmonic Valve Normal pulmonic valve. Great Vessels Normal aortic root. The pulmonary artery is normal size. Inferior vena cava collapse with respiration. Pericardium/Pleural No pericardial effusion. MMode/2D Measurements & Calculations LVIDd: 3.7 cm IVSd: 0.96 cm LAV(MOD- bp): 24.2 ml LVIDs: 2.2 cm LVPWd: 0.89 cm LAV(MOD- bp) Indexed: 16.0 ml/m2 RVDd: 3.1 cm FS: 40.7 % LAV(MOD- sp2): 30.1 ml LAV(MOD- sp4): 19.2 ml SV(MOD- sp4): 23.0 ml LVAd ap4: 16.7 cm2 LVAd ap2: 16.0 cm2 LVLd ap4: 6.2 cm LVLd ap2: 6.6 cm SI(MOD- sp4): 15.2 ml/m2 EDV(MOD-sp4): 36.9 ml EDV(MOD-sp2): 32.0 ml EDV(sp4-el): 37.8 ml EDV(sp2-el): 32.8 ml LVAs ap4: 9.5 cm2 LVAs ap2: 9.1 cm2 LVLs ap4: 5.5 cm LVLs ap2: 5.5 cm ESV(MOD-sp4): 13.9 ml ESV(MOD-sp2): 12.9 ml ESV(sp4-el): 13.9 ml ESV(sp2-el): 12.8 ml EF(MOD-sp4): 62.3 % EF(MOD-sp2): 59.8 % EF(sp4-el): 63.4 % SV(MOD-sp2): 19.1 ml SV(sp4-el): 24.0 ml LA A4 area: 10.4 cm2 SI(MOD-sp2): 12.7 ml/m2 LA dimension(2D): 2.5 cm TAPSE: 2.2 cm RA A4 area: 7.2 cm2 Time Measurements MV dec time: 0.18 sec Doppler Measurements & Calculations MV E max nehemias: 101.6 cm/sec Lat Peak E' Nehemias: 8.7 cm/sec Med Peak E' Nehemias: 9.8 cm/sec MV A max nehemias: 116.9 cm/sec E/E' lat: 11.7 E/E' med: 10.4 MV E/A: 0.87 MV dec slope: 559.0 cm/sec2 TR max nehemias: 242.6 cm/sec TR max P.7 mmHg ECHO/Echo, Limited Study Interpretation Summary Normal LV size. Left ventricular systolic function is normal. The left ventricular ejection fraction is 60 %. Stage 1 diastolic dysfunction. Pulmonary artery systolic pressure is 27 mmHg. Ordering Physician: Rosy Resendez Performed By: Brisa Gomez RDCS
--- NOTE | 2025-06-24 16:50 | PCM.HP.STD ---
HPI - General General Date of Admission: 06/24/25 Date of Service: 06/24/25 Chief Complaint: Shortness of breath HPI Narrative ASHLIE RODARTE, is a 74 F who presented to the emergency department at [facility] on 06/24/2025 with a chief complaint of shortness of breath. Patient has a known history of ITP and anemia and is being followed by Dr. Martínez. She reports she has had shortness of breath for the last 4 nights prior to presentation. She states that since her last discharge from the hospital she developed some lower extremity edema. She is not oxygen dependent at home but does have a history of tobacco abuse. She states that her shortness of breath has slowly worsened since she was discharged from the hospital recently. She does state that she has been more sedentary since that point in time. She is complaining of some intermittent bilateral lower extremity leg pains that she has had since discharge as well. Vital signs on presentation showed temperature of 98.6, heart rate 105, respiratory 24, blood pressure is 127/72 and pulse ox was 86% on room air. She was placed on 2 L nasal cannula with improvement oxygen saturation 93%. CBC showed anemia that is worsened since 06/12/2025. Hemoglobin currently is 7.1 with a hemoglobin on 06/12/2025 with a hemoglobin of 9.9. Platelet count is up from 62,000-120,000. Chemistry panel showed normal electrolytes and normal renal function. Her initial troponin was 31 with a delta of 30 and a 4-hour troponin of 30. proBNP was 1266. CTA of the chest was performed and showed left lower lobe segmental pulmonary emboli without CT evidence of right heart strain, small right pleural effusion and trace left pleural effusion, mild centrilobular emphysema, coronary artery calcifications consistent with CAD and no acute pathology or mediastinal lymphadenopathy. Given her marked anemia and need for anticoagulation, the emergency department did start her on heparin. She will be transfused 1 unit as ordered by the emergency department physician. [facility] Medical History Knee pain Elevated troponin level History of ITP Steroid dependence Generalized weakness Smoker Neuropathy Hypertension Hx of bladder cancer Hx of breast cancer Home Medications ?Medication ?Instructions ?Recorded ?Last Taken ?Type folic acid 1 mg tablet 1 mg PO DAILY supplement 06/09/25 Unknown History gabapentin 300 mg capsule 600 mg PO QHS nerve pain 06/09/25 Unknown History hydrocodone-acetaminophen 5-325mg 1 tab PO QHS pain 06/09/25 Unknown History 5mg-325mg oxycodone 5 mg tablet 5 mg PO Q6H PRN pain 5 days #20 06/12/25 Unknown Rx tabs Allergy/AdvReac Type Severity Reaction Status Date / Time Sulfa (Sulfonamide Allergy Swelling Verified 06/24/25 13:31 Antibiotics) no significant family history Surgical History Hx of hysterectomy Hx of mastectomy Social History (Updated 06/24/25 @ 21:[address] Rosy Resendez DO) household members: spouse housing: house Smoking Status: Current every day smoker tobacco type: cigarettes alcohol intake: never substance use type: does not use ROS Constitutional Constitutional: Denies anorexia, change in weight, chills, fatigue, fever(s), malaise, night sweats, weakness or other Eyes Eyes: Denies blurry vision, change in eye color, change in vision, discharge from eye(s), double vision, erythema, eye pain, loss of vision or other ENT HEENT: Denies abnormal hearing, dysphagia, ear pain, epistaxis, headache(s), hearing loss, nasal congestion, nasal discharge, post nasal drip, sinus pressure, sore throat or other Cardiovascular Cardiovascular: Reports edema and orthopnea; Denies chest pain, claudication, dyspnea on exertion, lightheadedness, palpitations, paroxysmal nocturnal dyspnea, rapid heart rate, syncope or other Respiratory/Chest Respiratory/Chest: Reports dyspnea, shortness of breath at rest and shortness of breath with exertion; Denies cough, excessive phlegm production, hemoptysis, productive cough, wheezing or other Gastrointestinal Gastrointestinal: Denies abdominal pain, coffee ground emesis, constipation, diarrhea, dyspepsia, hematemesis, hematochezia, loose stools, melena, nausea, vomiting or other Genitourinary Genitourinary: Denies burning urination, difficulty urinating, dysuria, hematuria, nocturia, urinary frequency, urinary hesitancy, urinary incontinence, urinary urgency or other Musculoskeletal Musculoskeletal: Denies arthralgias, back pain, joint pain, joint stiffness, joint swelling, myalgias, neck pain or other Neurologic Neurologic: Denies abnormal gait, abnormal speech, confusion, disequilibrium, dizziness, focal weakness, headache(s), numbness, paresthesias, seizure-like activity, seizures, syncope, tingling, tremor(s) or other Psychiatric Psychiatric: Denies anxiety, depression, homicidal ideation, suicidal ideation or other Endocrine Endocrinology: Denies change in body appearance, cold intolerance, excessive sweating, heat intolerance, polydipsia, polyuria or other Hematologic/Lymphatic Hematologic/Lymphatic: Reports anemia, easy bleeding and easy bruising; Denies lymphadenopathy or other Allergic/Immunologic Allergic/Immunologic: Denies rhinitis, hives, eczemia, asthma or other Vital Signs Vital Signs Vital Signs: 06/24/25 13:31 06/24/25 13:31 06/24/25 13:33 Temperature 98.6 F Temperature Source Oral Pulse Rate 105 H Respiratory Rate 24 H Respiratory Effort Short of Breath Respiratory Depth Normal Respiratory Pattern Normal Blood Pressure 127/72 H Blood Pressure Mean 90 Pulse Ox 86 93 Oxygen Delivery Method Room Air Room Air Nasal Cannula Oxygen Flow Rate (L/min) 2 06/24/25 14:31 06/24/25 14:31 06/24/25 15:00 Temperature Temperature Source Pulse Rate 92 108 H Respiratory Rate 18 19 H Respiratory Effort Respiratory Depth Respiratory Pattern Blood Pressure 128/78 H 150/81 H Blood Pressure Mean 94 104 Pulse Ox 95 94 Oxygen Delivery Method Room Air Nasal Cannula Room Air Oxygen Flow Rate (L/min) 2 06/24/25 15:50 06/24/25 15:57 06/24/25 16:00 Temperature Temperature Source Pulse Rate 105 H Respiratory Rate 18 Respiratory Effort Respiratory Depth Respiratory Pattern Blood Pressure 143/63 H Blood Pressure Mean 88 Pulse Ox 89 100 100 Oxygen Delivery Method Room Air Nasal Cannula Nasal Cannula Oxygen Flow Rate (L/min) 2 2 Weight Weight: 55.474 kg Body Mass Index (BMI) 23.8 Results Lab / Micro Data 06/24/25 18:14 06/24/25 14:10 Labs: Laboratory Results - last 24 hr 06/24/25 14:10: WBC 7.8, RBC 2.20 L, Hgb 7.1 L, Hct 21.9 L, MCV 99.5 H, MCH 32.3 H, MCHC 32.4, RDW Std Deviation 61.9 H, RDW Coeff of Avinash 17.9 H, Plt Count 120 L, MPV 11.3, Neut % (Auto) Not Reportable, Absolute Neuts (auto) 4.7, Absolute Lymphs (auto) 1.90, Total Counted 100, Neutrophils % (Manual) 56, Band Neutrophils % 5, Lymphocytes % (Manual) 24, Monocytes % (Manual) 10, Metamyelocytes % 3 H, Myelocytes % 2 H, Platelet Estimate ADEQUATE, RBC Morphology NORM C+C, Sodium 141, Potassium 4.0, Chloride 105, Carbon Dioxide 24.0, Anion Gap 12, BUN 14, Creatinine 0.64 L, Estim Creat Clear Calc 49.66 L, Est GFR (MDRD) Non-Af 94, BUN/Creatinine Ratio 22.4 H, Glucose 109 H, Calcium 8.4, Iron 33 L, Iron Saturation 15.7, Unsaturated IBC 180 L, Troponin T High Sens 31 H D, NT pro BNP II 1266 H Imaging Radiology Impression Chest CTA 06/24/25 14:00 IMPRESSION: Left lower lobe segmental pulmonary emboli without CT evidence of right heart strain. Small right pleural effusion. Trace left pleural effusion. Mild centrilobular emphysema. Coronary artery calcifications consistent with coronary atherosclerosis. No acute aortic pathology or mediastinal lymphadenopathy. Critical results were communicated to Dr. Venkatesh Medley at 3:20 p.m.. Reading Location: [address] Assessment & Plan Assessment/Plan (1) Anemia: (2) Hypoxia: (3) Elevated brain natriuretic peptide (BNP) level: (4) Elevated troponin: (5) Tachycardia: (6) Leg edema: PLAN: Plan Hypoxia secondary to acute pulmonary emboli - No RV strain noted on CT however her biomarkers are elevated with elevated troponin and BNP - Check echocardiogram - Lasix 40 mg IV push x 1 dose - Do not suspect patient has lower extremity DVTs given edema but obtaining Dopplers does not change overall treatment but obtaining needs is not necessary - Heparin drip for now with anemia and plan to transition to Eliquis with loading dose then therapeutic dose and follow -Currently requiring 2 L nasal cannula - Will need amatory pulse ox prior to discharge - If echocardiogram shows evidence of right heart strain may need vascular involvement for consideration of thrombectomy Bilateral lower extremity edema - Suspect related to DVT - BNP is elevated so we will give Lasix x 1 dose - Echocardiogram is pending Troponin elevation/BNP elevation - Suspect related to acute PE - Echocardiogram is pending Acute on chronic anemia - Baseline hemoglobin appears to run between 9 and 10 - 7.1 on presentation - Case was discussed by ER physician with oncologist Dr. Martínez and he indicated to Dr. Allison Sherwood that blood loss anemia had been ruled out - Will obtain our iron studies and reticulocyte count - Check stool for guaiac - Transfused 1 unit packed red blood cells - Repeat CBC in a.m. - Monitor closely given need for anticoagulation Chronic thrombocytopenia secondary to ITP - Platelet count seems to be trending up - Encouraged ongoing outpatient follow-up with Dr. Martínez from oncology - Has previously been on Decadron but not currently taking Bilateral lower extremity leg pain - May be related to DVT - Continue home gabapentin next-continue as needed oxycodone - PT/OT consultation Tobacco abuse - Patient does show evidence of mild centrilobular emphysematous changes on her CAT scan - As needed albuterol - Encouraged tobacco cessation History of bladder cancer/history of breast cancer - No current issues - Ongoing outpatient follow-up DVT prophylaxis - Patient on heparin drip for VTE CODE STATUS - Full code as verified at the time of admission Charges/Coding Visit Charges Inpatient E&M: 66064 Init Hosp L2
[2025-06-24 16:52] LABS: Iron Binding Capacity,Total 213 ug/dL (250-450)
[2025-06-24] MEDS: Heparin Injection (Vial) 5,000 UNIT/ML VIAL 3500 UNIT IV (17:04)
[2025-06-24] MEDS: HEPARIN/D5w 25,000 UNITS 25,000 UNITS/250 ML IV.SOLN. 6.7 UNITS CONT INF (17:05)
[2025-06-24 17:40] LABS: Prothrombin Time (Protime)PT. 14.8 SECONDS (11.7-14.9)
[2025-06-24 17:41] LABS: Partial Thromboplast Time 29.4 Seconds (24.1-36.2)
--- NOTE | 2025-06-24 17:53 | CASEMGMT ---
Care Management Face to Face with patient for initial transition planning/care coordination assessment in the ED.? This ticket writer introduced self and role at [facility]. Patient alert and oriented. Patient willing to participate in assessment and is able to answer all questions appropriately.? Care providers, pharmacy, and demographics verified. Admitting Diagnosis: ?SOB Other diagnosis history: ?ITP, low platelets, anemia PCP: ?Josef Specialists: ?Osbaldo Martínez Preferred Pharmacy: [facility] Insurance: ??[employer] Benefit: ?yes Living Will/HPOA: ?has both completed LNOK: ?Sig other Living Arrangements: Currently living in a camper, mobile home will be delivered in two weeks Transportation: ?patient normally drives, has not in the last two weeks.? Sig other driving where needed DME: ?none HHC: ?none SNF/Rehab: ?none Community Resources: ?none Behavioral Health History: ?none Patient goals: Patient wishes to discharge home, denies need for home health care at this time. Patient denies any further needs or concerns at this time. Disposition Plan: admission to acute; RN CM/SW to follow for discharge planning needs that may arise. Ananya Dc, LAMP REPLACER, ENVELOPE FOLDER
[2025-06-24 18:31] LABS: Hematocrit 20.6 % (37-47); Hemoglobin 7.2 g/dL (12.0-15.0); Immature Granulocytes Count 0.310 X10^3/uL (0.0-0.0); Mean Corp Hgb Conc 35.0 g/dL (32-36); Mean Corpuscular Volume 101.5 fL (81-99); Mean Platelet Vol. 11.1 fl (6.2-12.0); NRBC Flagged by Analyzer 3.0 % (0-5); Platelet Count 118 K/mm3 (150-450); RBC Distribution Width CV 19.0 % (11.6-14.6); RBC Distribution Width SD 62.0 fl (35.1-43.9); Red Blood Count 2.03 M/mm3 (4.2-5.4); Reticulocyte Count 7.03 % (0.5-1.5); White Blood Count 7.9 K/mm3 (4.4-11.0)
[2025-06-24 18:34] LABS: Immature Reticulocyte Fraction 38.00 % (3.00-15.90)
[2025-06-24] MEDS: 0.9% Saline Lock 10 ML Syringe IV (18:52)
[2025-06-24 19:06] LABS: Ferritin 601 ng/mL (22-378)
[2025-06-24 19:22] LABS: Troponin T High Sens 2 HR 30 ng/L (<=14)
[2025-06-24 21:09] LABS: Troponin T High Sens 4 HR 30 ng/L (<=14)
--- NOTE | 2025-06-24 21:24 | PCM.HOSP.N ---
Hospitalist Note Late Entry: Notified by nursing that hemoccult was + but per hematology/onc pt has had extensive eval for blood loss anemia. Monitor closely with close observation of hgb. Continue heparin ggt for now. Repeat CBC in am. May need to consider GI eval if drops again.
[2025-06-24] MEDS: MELATONIN 10 MG TABLET PO (21:54)
[2025-06-24 23:35] LABS: Partial Thromboplast Time 50.5 Seconds (24.1-36.2)
[2025-06-25 02:38] VITALS: BMI 23.6
[2025-06-25 03:35] VITALS: BP 133/67; PULSE 99; RESP 16; TEMP 36.8; O2SAT 94
[2025-06-25 06:22] LABS: Hematocrit 24.1 % (37-47); Hemoglobin 8.0 g/dL (12.0-15.0); Immature Granulocytes Count 0.380 X10^3/uL (0.0-0.0); Mean Corp Hgb Conc 33.2 g/dL (32-36); Mean Corpuscular Volume 95.3 fL (81-99); Mean Platelet Vol. 11.0 fl (6.2-12.0); NRBC Flagged by Analyzer 4.7 % (0-5); Platelet Count 130 K/mm3 (150-450); RBC Distribution Width CV 18.4 % (11.6-14.6); RBC Distribution Width SD 58.4 fl (35.1-43.9); Red Blood Count 2.53 M/mm3 (4.2-5.4); White Blood Count 8.7 K/mm3 (4.4-11.0)
[2025-06-25 06:33] LABS: Partial Thromboplast Time 51.5 Seconds (24.1-36.2)
[2025-06-25 06:43] LABS: AST(SGOT) 18 U/L (<=31); Alanine Aminotransfer ALT/SGPT 20 U/L (<=34); Albumin, Serum 2.9 g/dL (3.4-4.8); Alkaline Phosphatase 87 U/L (35-104); Anion Gap 12 (5-15); BUN 13 mg/dL (4-19); BUN/Creat Ratio 17.0 RATIO (10-20); Calcium,Total 8.0 mg/dL (7.6-11.0); Carbon Dioxide 25.5 mmol/L (21.0-32.0); Chloride 102 mmol/L (98-108); Estimated Creatinine Clearance 49.43 ml/min (50-250); Globulin 2.6 g/dL (2.2-4.2); Glucose 123 mg/dL (70-99); Magnesium 2.4 mg/dL (1.5-2.2); Potassium 3.4 mmol/L (3.3-5.1)
[2025-06-25 08:05] VITALS: O2SAT 94
--- NOTE | 2025-06-25 09:01 | PN.HOSP_ITS ---
Reason for Visit Chief Complaint: Shortness of breath Objective Data Objective Data Vital Signs: Vital Signs Temp Pulse Resp BP Pulse Ox O2 Del Method O2 Flow Rate 98.3 F 99 16 133/67 H 94 Nasal Cannula 2 06/25/25 03:35 06/25/25 03:35 06/25/25 03:35 06/25/25 03:35 06/25/25 03:35 06/25/25 03:35 06/25/25 03:35 Oxygen Flow Rate (L/min) 2 Oxygen Delivery Method Nasal Cannula Weight: 54.9 kg Body Mass Index (BMI) 23.6 Intake & Output: Intake and Output for Last 24 Hours 06/23/25 06/24/25 06/25/25 23:59 23:59 23:59 Intake Total 500 / 546.34 98.32 / 98.32 Output Total 0 / 400 700 / 700 Balance 500 / 146.34 -601.68 / -601.68 Lab / Micro Data 06/25/25 06:10 06/25/25 06:10 Labs: Laboratory Results - last 24 hr 06/24/25 14:10: WBC 7.8, RBC 2.20 L, Hgb 7.1 L, Hct 21.9 L, MCV 99.5 H, MCH 32.3 H, MCHC 32.4, RDW Std Deviation 61.9 H, RDW Coeff of Avinash 17.9 H, Plt Count 120 L , MPV 11.3, Neut % (Auto) Not Reportable, Absolute Neuts (auto) 4.7, Absolute Lymphs (auto) 1.90, Total Counted 100, Neutrophils % (Manual) 56, Band Neutrophils % 5, Lymphocytes % (Manual) 24, Monocytes % (Manual) 10, M etamyelocytes % 3 H, Myelocytes % 2 H, Platelet Estimate ADEQUATE, RBC Morphology NORM C+C, Sodium 141, Potassium 4.0, Chloride 105, Carbon Dioxide 24.0, Anion Gap 12, BUN 14, Creatinine 0.64 L, Estim Creat Clear Calc 49.66 L, Est GFR (MDRD) Non-Af 94, BUN/Creatinine Ratio 22.4 H, Glucose 109 H, Calcium 8.4, Iron 33 L, TIBC 213 L, Iron Saturation 15.5, Unsaturated IBC 180 L, T roponin T High Sens 31 H D, NT pro BNP II 1266 H 06/24/25 17:03: PT 14.8, INR 1.1, APTT 29.4 06/24/25 17:30: Blood Type O POSITIVE, Antibody Screen NEGATIVE, Crossmatch See Detail 06/24/25 18:14: WBC 7.9, RBC 2.03 L, Hgb 7.2 L, Hct 20.6 L, MCV 101.5 H, MCH 35.5 H, MCHC 35.0 D, RDW Std Deviation 62.0 H, RDW Coeff of Avinash 19.0 H, Plt Count 118 L, MPV 11.1, Immature Gran % (Auto) 3.900 H, Neut % (Auto) 48.6, Lymph % (Auto) 38.0, Holt % (Auto) 8.8, Eos % (Auto) 0.4, Baso % (Auto) 0.3, Absolute Neuts (auto) 3.9, Absolute Lymphs (auto) 3.01, Nucleated RBC % 3.0, Retic Count 7.03 H, Immature Retic Fraction 38.00 H, Retic Hgb Equivalent 30.8, Ferritin 601 H, Troponin T Hi Sens 2 Hr 30 H 06/24/25 20:12: Troponin T Hi Sens 4Hr 30 H 06/24/25 20:58: APTT 50.5 H 06/25/25 06:10: WBC 8.7, RBC 2.53 L, Hgb 8.0 L, Hct 24.1 L, MCV 95.3 D, MCH 31.6, MCHC 33.2 D, RDW Std Deviation 58.4 H, RDW Coeff of Avinash 18.4 H, Plt Count 130 L, MPV 11.0, Immature Gran % (Auto) 4.400 H, Neut % (Auto) 55.5, Lymph % (Auto) 28.4, Holt % (Auto) 10.9 H, Eos % (Auto) 0.5, Baso % (Auto) 0.3, Absolute Neuts (auto) 4.9, Absolute Lymphs (auto) 2.48, Nucleated RBC % 4.7, APTT 51.5 H, Sodium 139, Potassium 3.4, Chloride 102, Carbon Dioxide 25.5, Anion Gap 12, BUN 13, Creatinine 0.74, Estim Creat Clear Calc 49.43 L, Est GFR (MDRD) Non-Af 85, BUN/Creatinine Ratio 17.0, Glucose 123 H, Calcium 8.0, Phosphorus 4.6 H, M agnesium 2.4 H, Total Bilirubin 0.39, AST 18, ALT 20, Alkaline Phosphatase 87, T otal Protein 5.5 L, Albumin 2.9 L, Globulin 2.6, Albumin/Globulin Ratio 1.1 Micro: Microbiology 06/24/25 20:10 Stool Stool Occult Blood (JARED) - Final Occult Blood Positive Radiography Diagnostic Testing: Radiology Impression Chest CTA 06/24/25 14:00 IMPRESSION: Left lower lobe segmental pulmonary emboli without CT evidence of right heart strain. Small right pleural effusion. Trace left pleural effusion. Mild centrilobular emphysema. Coronary artery calcifications consistent with coronary atherosclerosis. No acute aortic pathology or mediastinal lymphadenopathy. Critical results were communicated to Dr. Venkatesh Medley at 3:20 p.m.. Reading Location: [address] Physical Exam Narrative GENERAL: cooperative HEENT: Atraumatic; normocephalic EYES; Anicteric, Normal Conjunctiva NECK; supple, normal thyroid, RESPIRATORY: Diminished to auscultation CARDIOVASCULAR: Regular S1 S2, GI: soft, normoactive bowel sounds, : No Renal angle tenderness; EXTREMITIES: No edema, no clubbing, MUSCULOSKELETAL: no muscle wasting NEURO: Awake; no lateralizing signs. SKIN: No Rash PSYCH; Flat affect Assessment & Plan Assessment/Plan (1) Anemia: (2) Hypoxia: PLAN: Plan Patient is a 74-year-old lady who presented with a 3-day history of progressive shortness of breath. CT of the chest obtained demonstrated left lower lobe segmental pulmonary emboli without CT evidence of right heart strain. Admitted to a monitored bed for subsequent management 1. Acute pulmonary embolism ? Patient presented with hypoxia. CTA of the chest obtained did show Left lower lobe segmental pulmonary emboli without CT evidence of right heart strain. Patient admitted to monitored bed started on heparin transition to apixaban starting 06/25/2025. As part of patient's management 2D echo was ordered. Patient did present with bilateral lower extremity swelling however duplex ultrasound was felt not to be necessary do agree with sentiment. 2. Acute congestive heart failure ? Suspected to be secondary to right-sided heart failure from patient pulmonary embolism 2D echo ordered and as part of patient's management patient did receive furosemide 3. Anemia ? Secondary to chronic disorder monitoring H&H and transfuse if patient becomes symptomatic or hemoglobin falls below 7 4. Chronic thrombocytopenia ? Secondary to ITP, patient is followed by [facility] oncology. Monitoring with daily CBC with differential 5. History of breast cancer ? More than 20 years ago patient has remained in remission 6. History of bladder CA ? Patient completed chemo a year ago 7. COPD Secondary to tobacco use. Patient CT of the chest demonstrated mild centrilobular emphysema 8. Tobacco dependence ? Counseled on cessation, offered nicotine patch for tobacco cravings Time spent in the patient's overall evaluation,decision-making process, review of diagnostic data, adjustment of management, discussion with other providers, nursing nursing and ancillary staff involved in patient's care documentation, 50 Minutes Charges/Coding Visit Charges Inpatient E&M: 88831 Subs Hosp L3
[2025-06-25 09:09] VITALS: BP 112/59; PULSE 99; RESP 18; TEMP 36.7; O2SAT 93
--- NOTE | 2025-06-25 11:47 | CHAPLAIN ---
Type of Pastoral Visit _x__ Initial Visit ___ Follow-up Visit ___ On-call Visit ___ General Patient Visit ___ Spiritual Assessment ___ Family Conference ___ Bereavement ___ Rapid Response ___ Code Blue ___ Other (describe below) Pastoral Care Referral From _x__ Patient ___ Family ___ Nurse ___ Physician ___ Crimper Assembler ___ Pony Cylinder Press Operator ___ Other (describe below) Sacrament/Intervention _x__ Active listening ___ Anointing ___ Samaritan ___ Bereavement ___ Communion _x__ Nydia exploration ___ _x__ Life review _x__ Prayer ___ Reconciliation ___ Sacrament of Sick ___ Supportive presence ___ Wedding ___ Other (describe below) Pastoral Comments patient is welcoming and eager to talk with someone; pt's spouse is with her as well; pt speaks of recent health concerns, the love that she has for her new gnosticism, the plans for a new modular home being built for them, and her blessings; both welcome presence and prayer
[2025-06-25] MEDS: 0.9% Saline Lock 10 ML Syringe IV (11:52)
[2025-06-25] MEDS: APIXABAN 5 MG TABLET PO ×2 (11:52→21:46)
[2025-06-25 15:30] VITALS: BP 147/62; PULSE 102; RESP 18; TEMP 36.9; O2SAT 95
[2025-06-25 21:30] VITALS: BP 143/75; PULSE 102; RESP 18; TEMP 37; O2SAT 96
[2025-06-25] MEDS: MELATONIN 10 MG TABLET PO (21:46)
[2025-06-26] VITALS (7 sets, daily range): BP systolic 120–138; BP diastolic 53–63; PULSE 84–104; RESP 16–18; TEMP 36.4–37.1; O2SAT 87–99; BMI 24.9
[2025-06-26 05:46] LABS: Hematocrit 23.4 % (37-47); Hemoglobin 7.5 g/dL (12.0-15.0); Immature Granulocytes Count 0.440 X10^3/uL (0.0-0.0); Mean Corp Hgb Conc 32.1 g/dL (32-36); Mean Corpuscular Volume 98.3 fL (81-99); Mean Platelet Vol. 11.0 fl (6.2-12.0); NRBC Flagged by Analyzer 1.4 % (0-5); Platelet Count 136 K/mm3 (150-450); RBC Distribution Width CV 18.1 % (11.6-14.6); RBC Distribution Width SD 62.6 fl (35.1-43.9); Red Blood Count 2.38 M/mm3 (4.2-5.4); White Blood Count 9.1 K/mm3 (4.4-11.0)
[2025-06-26 07:01] LABS: Anion Gap 10 (5-15); BUN 18 mg/dL (4-19); BUN/Creat Ratio 26.4 RATIO (10-20); Calcium,Total 7.8 mg/dL (7.6-11.0); Carbon Dioxide 24.6 mmol/L (21.0-32.0); Chloride 102 mmol/L (98-108); Estimated Creatinine Clearance 50.64 ml/min (50-250); Glucose 101 mg/dL (70-99); Magnesium 2.0 mg/dL (1.5-2.2); Potassium 3.7 mmol/L (3.3-5.1)
--- NOTE | 2025-06-26 08:32 | PCM.PN.HOSP ---
Reason for Visit Chief Complaint: Shortness of breath Subjective Subjective Patient seen and still remains on supplemental oxygen. Hemoglobin remains low at 7.5 patient has tolerated apixaban well so far. Plan is for patient to observe for 1 more day and assess patient for home oxygen in a.m. Objective Data Objective Data Vital Signs: Vital Signs Temp Pulse Resp BP Pulse Ox O2 Del Method O2 Flow Rate 98.3 F 84 16 121/53 H 96 Nasal Cannula 2 06/26/25 03:20 06/26/25 03:20 06/26/25 03:20 06/26/25 03:20 06/26/25 03:20 06/26/25 03:20 06/26/25 03:20 Oxygen Flow Rate (L/min) 2 Oxygen Delivery Method Nasal Cannula Weight: 57.9 kg Body Mass Index (BMI) 24.9 Intake & Output: Intake and Output for Last 24 Hours 06/24/25 06/25/25 06/26/25 23:59 23:59 23:59 Intake Total 500 / 546.34 802.84 / 802.84 Output Total 0 / 400 700 / 700 Balance 500 / 146.34 102.84 / 102.84 Lab / Micro Data 06/26/25 05:27 06/26/25 05:27 Labs: Laboratory Results - last 24 hr 06/26/25 05:27: WBC 9.1, RBC 2.38 L, Hgb 7.5 L, Hct 23.4 L, MCV 98.3, MCH 31.5, MCHC 32.1, RDW Std Deviation 62.6 H, RDW Coeff of Avinash 18.1 H, Plt Count 136 L, MPV 11.0, Immature Gran % (Auto) 4.800 H, Neut % (Auto) 51.2, Lymph % (Auto) 29.6, Rooks % (Auto) 13.4 H, Eos % (Auto) 0.7, Baso % (Auto) 0.3, Absolute Neuts (auto) 4.7, Absolute Lymphs (auto) 2.69, Nucleated RBC % 1.4, Sodium 137, Potassium 3.7, Chloride 102, Carbon Dioxide 24.6, Anion Gap 10, BUN 18, Creatinine 0.67 L, Estim Creat Clear Calc 50.64, Est GFR (MDRD) Non-Af 93, BUN/Creatinine Ratio 26.4 H, Glucose 101 H, Calcium 7.8, Phosphorus 3.7, Magnesium 2.0 Micro: Microbiology 06/24/25 20:10 Stool Stool Occult Blood (JARED) - Final Occult Blood Positive Radiography Diagnostic Testing: Radiology Impression Echocardiogram 06/24/25 16:50 Interpretation Summary Normal LV size. Left ventricular systolic function is normal. The left ventricular ejection fraction is 60 %. Stage 1 diastolic dysfunction. Pulmonary artery systolic pressure is 27 mmHg. Ordering Physician: Rosy Resendez Performed By: Brisa Gomez RDCS Physical Exam Narrative GENERAL: cooperative HEENT: Atraumatic; normocephalic EYES; Anicteric, Normal Conjunctiva NECK; supple, normal thyroid, RESPIRATORY: Diminished to auscultation CARDIOVASCULAR: Regular S1 S2, GI: soft, normoactive bowel sounds, : No Renal angle tenderness; EXTREMITIES: No edema, no clubbing, MUSCULOSKELETAL: no muscle wasting NEURO: Awake; no lateralizing signs. SKIN: No Rash PSYCH; Flat affect Assessment & Plan Assessment/Plan (1) Anemia: (2) Hypoxia: PLAN: Plan Patient is a 74-year-old lady who presented with a 3-day history of progressive shortness of breath. CT of the chest obtained demonstrated left lower lobe segmental pulmonary emboli without CT evidence of right heart strain. Admitted to a monitored bed for subsequent management 1. Acute pulmonary embolism ? Patient presented with hypoxia. CTA of the chest obtained did show Left lower lobe segmental pulmonary emboli without CT evidence of right heart strain. Patient admitted to monitored bed started on heparin transition to apixaban starting 06/25/2025. As part of patient's management 2D echo was ordered. Patient did present with bilateral lower extremity swelling however duplex ultrasound was felt not to be necessary do agree with sentiment. 2. Acute congestive heart failure with preserved ejection fraction ? Suspected to be secondary to right-sided heart failure from patient pulmonary embolism 2D echo ordered and as part of patient's management patient did receive furosemide ? 06/26/2025; patient 2D echo did show Normal LV size. Left ventricular systolic function is normal. The left ventricular ejection fraction is 60 %. Stage 1 diastolic dysfunction. Pulmonary artery systolic pressure is 27 mmHg. 3. Anemia ? Secondary to chronic disorder monitoring H&H and transfuse if patient becomes symptomatic or hemoglobin falls below 7. 06/26/2025 patient has apparently had extensive workup as outpatient by her primary oncologist. Plan for patient to follow-up following discharge. Hemoglobin remains low at 7.5 4. Chronic thrombocytopenia ? Secondary to ITP, patient is followed by [facility]. Monitoring with daily CBC with differential 5. History of breast cancer ? More than 20 years ago patient has remained in remission 6. History of bladder CA ? Patient completed chemo a year ago 7. COPD Secondary to tobacco use. Patient CT of the chest demonstrated mild centrilobular emphysema 8. Tobacco dependence ? Counseled on cessation, offered nicotine patch for tobacco cravings Time spent in the patient's overall evaluation,decision-making process, review of diagnostic data, adjustment of management, discussion with other providers, nursing nursing and ancillary staff involved in patient's care documentation 38 Minutes Charges/Coding Visit Charges Inpatient E&M: 96772 Subs Hosp L2
[2025-06-26] MEDS: APIXABAN 5 MG TABLET PO ×2 (09:23→20:10)
[2025-06-26] MEDS: MELATONIN 10 MG TABLET PO (20:10)
[2025-06-27 03:00] VITALS: BP 125/60; PULSE 88; RESP 16; TEMP 36.6; O2SAT 98
[2025-06-27 03:13] VITALS: BMI 24.5
[2025-06-27 07:15] LABS: Hematocrit 22.6 % (37-47); Hemoglobin 7.3 g/dL (12.0-15.0); Mean Corp Hgb Conc 32.3 g/dL (32-36); Mean Corpuscular Volume 98.3 fL (81-99); Mean Platelet Vol. 11.0 fl (6.2-12.0); POSITIVE COUNT YES; POSITIVE MORPHOLOGY YES; Platelet Count 159 K/mm3 (150-450); RBC Distribution Width CV 17.8 % (11.6-14.6); RBC Distribution Width SD 62.2 fl (35.1-43.9); Red Blood Count 2.30 M/mm3 (4.2-5.4); White Blood Count 8.4 K/mm3 (4.4-11.0)
[2025-06-27 07:17] LABS: Differential Indicated MANUAL DIFF
[2025-06-27 07:47] LABS: Anion Gap 9 (5-15); BUN 17 mg/dL (4-19); BUN/Creat Ratio 29.1 RATIO (10-20); Calcium,Total 8.0 mg/dL (7.6-11.0); Carbon Dioxide 25.2 mmol/L (21.0-32.0); Chloride 102 mmol/L (98-108); Estimated Creatinine Clearance 50.27 ml/min (50-250); Glucose 91 mg/dL (70-99); Potassium 3.9 mmol/L (3.3-5.1)
[2025-06-27 08:00] VITALS: O2SAT 88; O2SAT 90; O2SAT 99
[2025-06-27 08:09] LABS: Neutrophil-Band 8 % (0-5); Neutrophil-Segmented 58 % (47-70); Total Cells Counted 100 (MANUAL DIFF)
[2025-06-27 08:20] LABS: Red Cell Morphology NORM C+C NORMAL (NORM C&C)
--- NOTE | 2025-06-27 09:02 | PCM.PN.HOSP ---
Reason for Visit Chief Complaint: Shortness of breath Subjective Subjective Patient seen hemoglobin down to 7.3. An order was given for patient to receive parenteral iron with H&H ordered for noon Objective Data Objective Data Vital Signs: Vital Signs Temp Pulse Resp BP Pulse Ox O2 Del Method O2 Flow Rate 97.8 F 88 16 125/60 H 98 Nasal Cannula 2 06/27/25 03:00 06/27/25 03:00 06/27/25 03:00 06/27/25 03:00 06/27/25 03:00 06/27/25 03:00 06/27/25 03:00 Oxygen Flow Rate (L/min) 2 Oxygen Delivery Method Nasal Cannula Weight: 57 kg Body Mass Index (BMI) 24.5 Intake & Output: Intake and Output for Last 24 Hours 06/25/25 06/26/25 06/27/25 23:59 23:59 23:59 Intake Total 802.84 / 802.84 Output Total 700 / 700 Balance 102.84 / 102.84 Lab / Micro Data 06/27/25 06:44 06/27/25 06:44 Labs: Laboratory Results - last 24 hr 06/27/25 06:44: WBC 8.4, RBC 2.30 L, Hgb 7.3 L, Hct 22.6 L, MCV 98.3, MCH 31.7, MCHC 32.3, RDW Std Deviation 62.2 H, RDW Coeff of Avinash 17.8 H, Plt Count 159, MPV 11.0, Neut % (Auto) Not Reportable, Absolute Neuts (auto) 5.2, Absolute Lymphs (auto) 1.75, Total Counted 100, Neutrophils % (Manual) 58, Band Neutrophils % 8 H, Lymphocytes % (Manual) 21, Monocytes % (Manual) 12 H, Eosinophils % (Manual) 1, Platelet Estimate ADEQUATE, RBC Morphology NORM C+C, Sodium 137, Potassium 3.9, Chloride 102, Carbon Dioxide 25.2, Anion Gap 9, BUN 17, Creatinine 0.59 L, Estim Creat Clear Calc 50.27, Est GFR (MDRD) Non-Af 96, BUN/Creatinine Ratio 29.1 H, Glucose 91, Calcium 8.0 Micro: Microbiology 06/24/25 20:10 Stool Stool Occult Blood (JARED) - Final Occult Blood Positive Physical Exam Narrative GENERAL: cooperative HEENT: Atraumatic; normocephalic EYES; Anicteric, Normal Conjunctiva NECK; supple, normal thyroid, RESPIRATORY: Diminished to auscultation CARDIOVASCULAR: Regular S1 S2, GI: soft, normoactive bowel sounds, : No Renal angle tenderness; EXTREMITIES: No edema, no clubbing, MUSCULOSKELETAL: no muscle wasting NEURO: Awake; no lateralizing signs. SKIN: No Rash PSYCH; Flat affect Assessment & Plan Assessment/Plan (1) Anemia: (2) Hypoxia: PLAN: Plan Patient is a 74-year-old lady who presented with a 3-day history of progressive shortness of breath. CT of the chest obtained demonstrated left lower lobe segmental pulmonary emboli without CT evidence of right heart strain. Admitted to a monitored bed for subsequent management 1. Acute pulmonary embolism ? Patient presented with hypoxia. CTA of the chest obtained did show Left lower lobe segmental pulmonary emboli without CT evidence of right heart strain. Patient admitted to monitored bed started on heparin transition to apixaban starting 06/25/2025. As part of patient's management 2D echo was ordered. Patient did present with bilateral lower extremity swelling however duplex ultrasound was felt not to be necessary do agree with sentiment. ? 06/27/2025; patient has tolerated apixaban well so 2. Acute congestive heart failure with preserved ejection fraction ? Suspected to be secondary to right-sided heart failure from patient pulmonary embolism 2D echo ordered and as part of patient's management patient did receive furosemide ? 06/26/2025; patient 2D echo did show Normal LV size. Left ventricular systolic function is normal. The left ventricular ejection fraction is 60 %. Stage 1 diastolic dysfunction. Pulmonary artery systolic pressure is 27 mmHg. 3. Anemia ? Secondary to chronic disorder monitoring H&H and transfuse if patient becomes symptomatic or hemoglobin falls below 7. 06/26/2025 patient has apparently had extensive workup as outpatient by her primary oncologist. Plan for patient to follow-up following discharge. Hemoglobin remains low at 7.5 ? 06/27/2025 ;patient seen hemoglobin down to 7.3. An order was given for patient to receive parenteral iron with H&H ordered for noon 4. Chronic thrombocytopenia ? Secondary to ITP, patient is followed by [facility] oncology. Monitoring with daily CBC with differential 5. History of breast cancer ? More than 20 years ago patient has remained in remission 6. History of bladder CA ? Patient completed chemo a year ago 7. COPD Secondary to tobacco use. Patient CT of the chest demonstrated mild centrilobular emphysema 8. Tobacco dependence ? Counseled on cessation, offered nicotine patch for tobacco cravings Time spent in the patient's overall evaluation,decision-making process, review of diagnostic data, adjustment of management, discussion with other providers, nursing nursing and ancillary staff involved in patient's care documentation 35 Minutes Charges/Coding Visit Charges Inpatient E&M: 88763 Subs Hosp L2
[2025-06-27 10:56] VITALS: BP 134/62; PULSE 87; RESP 16; TEMP 36.5; O2SAT 99
[2025-06-27] MEDS: Sodium Ferric Gluconat 250 MG in 0.9% Normal Saline 250 ML 135 MG IV (11:01)
[2025-06-27] MEDS: APIXABAN 5 MG TABLET PO (11:06)
[2025-06-27 12:42] LABS: Hematocrit 24.5 % (37-47); Hemoglobin 7.9 g/dL (12.0-15.0)
--- NOTE | 2025-06-27 12:53 | DS.PCM_ITS ---
Providers Date of Admission: 06/24/25 Date of Discharge: 06/27/25 Primary Care Physician: Dr. Ryan Bahena MD Reason For Visit: HYPOXIA SECONDARY TO SEGMENTAL PA Diagnosis Discharge Diagnosis (1) Anemia: Status: Acute Code(s): D64.9 - Anemia, unspecified (2) Hypoxia: Status: Acute Code(s): R09.02 - Hypoxemia Plan Patient is a 74-year-old lady who presented with a 3-day history of progressive shortness of breath. CT of the chest obtained demonstrated left lower lobe segmental pulmonary emboli without CT evidence of right heart strain. Admitted to a monitored bed for subsequent management 1. Acute pulmonary embolism ? Patient presented with hypoxia. CTA of the chest obtained did show Left lower lobe segmental pulmonary emboli without CT evidence of right heart strain. Patient admitted to monitored bed started on heparin transition to apixaban starting 06/25/2025. As part of patient's management 2D echo was ordered. Patient did present with bilateral lower extremity swelling however duplex ultrasound was felt not to be necessary do agree with sentiment. ? 06/27/2025; patient has tolerated apixaban well so 2. Acute congestive heart failure with preserved ejection fraction ? Suspected to be secondary to right-sided heart failure from patient pulmonary embolism 2D echo ordered and as part of patient's management patient did receive furosemide ? 06/26/2025; patient 2D echo did show Normal LV size. Left ventricular systolic function is normal. The left ventricular ejection fraction is 60 %. Stage 1 diastolic dysfunction. Pulmonary artery systolic pressure is 27 mmHg. 3. Anemia ? Secondary to chronic disorder monitoring H&H and transfuse if patient becomes symptomatic or hemoglobin falls below 7. 06/26/2025 patient has apparently had extensive workup as outpatient by her primary oncologist. Plan for patient to follow-up following discharge. Hemoglobin remains low at 7.5 ? 06/27/2025 ;patient seen hemoglobin down to 7.3. An order was given for patient to receive parenteral iron with H&H ordered for noon ? 06/27/2025; patient hemoglobin came up to 7.9 discharged home and a requisition given for patient to have CBC with to be drawn on 07/01/2024 4. Chronic thrombocytopenia ? Secondary to ITP, patient is followed by [facility]. Monitoring with daily CBC with differential 5. History of breast cancer ? More than 20 years ago patient has remained in remission 6. History of bladder CA ? Patient completed chemo a year ago 7. COPD Secondary to tobacco use. Patient CT of the chest demonstrated mild centrilobular emphysema 8. Tobacco dependence ? Counseled on cessation, offered nicotine patch for tobacco cravings 9. Acute hypoxia ? Secondary to PE patient was assessed for home oxygen with she did qualify. I have reviewed the oxygen testing, and this patient qualifies for the home equipment and portability. The patient is mobile in the home and the community. Time spent in the patient's overall evaluation,decision-making process, review of diagnostic data, adjustment of management, discussion with other providers, nursing nursing and ancillary staff involved in patient's care documentation 35 Minutes Medications at Discharge Home Medications folic acid 1 mg tablet 1 mg PO DAILY supplement 06/09/25 gabapentin 300 mg capsule 600 mg PO QHS nerve pain 06/09/25 hydrocodone-acetaminophen 5-325mg 5mg-325mg 1 tab PO QHS pain 06/09/25 oxycodone 5 mg tablet 5 mg PO Q6H PRN pain 5 days #20 tabs 06/12/25 apixaban 5 mg tablet (Eliquis) 5 mg PO BID 60 days #120 tabs 06/27/25 Physical Exam Narrative GENERAL: cooperative HEENT: Atraumatic; normocephalic EYES; Anicteric, Normal Conjunctiva NECK; supple, normal thyroid, RESPIRATORY: Diminished to auscultation CARDIOVASCULAR: Regular S1 S2, GI: soft, normoactive bowel sounds, : No Renal angle tenderness; EXTREMITIES: No edema, no clubbing, MUSCULOSKELETAL: no muscle wasting NEURO: Awake; no lateralizing signs. SKIN: No Rash PSYCH; Flat affect Weight / BMI Weight Weight: 57 kg Body Mass Index (BMI) 24.5 ABG / Lab / Microbiology Data 06/27/25 12:12 06/27/25 06:44 Laboratory: Laboratory Results - last 24 hr 06/27/25 06:44: WBC 8.4, RBC 2.30 L, Hgb 7.3 L, Hct 22.6 L, MCV 98.3, MCH 31.7, MCHC 32.3, RDW Std Deviation 62.2 H, RDW Coeff of Avinash 17.8 H, Plt Count 159, MPV 11.0, Neut % (Auto) Not Reportable, Absolute Neuts (auto) 5.2, Absolute Lymphs (auto) 1.75, Total Counted 100, Neutrophils % (Manual) 58, Band Neutrophils % 8 H, Lymphocytes % (Manual) 21, Monocytes % (Manual) 12 H, Eosinophils % (Manual) 1, Platelet Estimate ADEQUATE, RBC Morphology NORM C+C, Sodium 137, Potassium 3.9, Chloride 102, Carbon Dioxide 25.2, Anion Gap 9, BUN 17, Creatinine 0.59 L, Estim Creat Clear Calc 50.27, Est GFR (MDRD) Non-Af 96, BUN/Creatinine Ratio 29.1 H, Glucose 91, Calcium 8.0 06/27/25 12:12: Hgb 7.9 L, Hct 24.5 L Microbiology: Microbiology 06/24/25 20:10 Stool Stool Occult Blood (JARED) - Final Occult Blood Positive D/C Instructions Discharge Activity: Return to Normal Activity Call your doctor if you observe: Fever of 101 or Higher, Shortness of breath, Fainting spells and Chest pain DC O2, CPAP, BIPAP Needs Home O2 Discharge instructions: Yes Type of respiratory needs?: Oxygen Oxygen frequency: Continuous Continuous oxygen liters per minute: 2 DC home with Oxygen: Yes Home O2 MD Review: I have reviewed the oxygen testing, and the patient qualifies for home oxygen equipment and portability. The patient is mobile in the home and the community. Meaningful Use Info Meaningful Use Meaningful Use Diagnoses (Choose all that apply): VTE VTE Anticoag overlap given w/in hospital stay or rx'd at dc?: No Pt receive overlap for 5 days?: No Reason overlap not ordered, prescribed, or given for 5 days: Treatment Not Indicated Discharge Plan Admission Admit Date/Time: 06/24/25 16:46 Attending Provider: Sushil Busch Primary Care Provider: Ryan Bahena Consulting Providers: Rosy Resendez Discharge Orders/Prescriptions Prescriptions: New Eliquis 5 mg Tablet 5 mg PO BID 60 Days Qty: 120 0RF Continued hydrocodone-acetaminophen 5-325 mg tablet 1 tab PO QHS gabapentin 300 mg capsule 600 mg PO QHS folic acid 1 mg tablet 1 mg PO DAILY oxycodone 5 mg tablet 5 mg PO Q6H PRN (Reason: pain) 5 Days Qty: 20 0RF Other Ambulatory Orders: CBC W/Diff, Automated (Routine) Timeframe: [id number] Facility: [facility] - Location: Laboratory Ordered By: Dr. Sushil Busch Referrals / Follow Up: Ryan Bahena MD [Primary Care Provider, Family Practice] - Within 1 Week Nicolas Martínez MD [Med Staff - Active Staff, Medical] - Within 1 Week Disposition Disposition (needs filled in before D/C Order can be placed): Home, Self Care
--- NOTE | 2025-06-27 13:26 | CASEMGMT ---
Pt has an order for DC placed. TC to [facility] who reports the pt's Rx for Eliquis costs 232$ after insurance. RN CM to the pt's room at this time and wishes to use the trial card and is aware this can only be used once. TC to [employer] and trial card applied successfully and the pt has a 0$ copay. Noted that the pt also qualifies for 2L of oxygen continuously per the office support associate. O2 Rx signed by Dr Busch. O2 Rx, testing results, and DC Summary sent to [employer] via [employer] at this time. Explained to the pt that [employer] will deliver portable tank to the bedside before DC and that the pt is to call [employer] once she arrives home to have [employer] deliver the remaining needed oxygen equipment. Pt states understanding and denies any further DC needs, questions, or concerns. Pt's RN updated.
[2025-06-27 15:30] VITALS: BP 128/81; PULSE 96; RESP 16; TEMP 36.9; O2SAT 97
== END 2025-06-27 16:06 | disposition home or self-care (01) | DRG 175 ==
LOC: ED 16:54 → PCU 16:59
PROVIDERS: Admitting Provider Internal Medicine; Emergency Provider Emergency Medicine; PCP Family Medicine; Visit Provider Internal Medicine
DX: I26.99 Other pulmonary embolism without acute cor pulmonale (principal); I50.31 Acute diastolic (congestive) heart failure; D69.3 Immune thrombocytopenic purpura; D63.8 Anemia in other chronic diseases classified elsewhere; J43.2 Centrilobular emphysema; F17.210 Nicotine dependence, cigarettes, uncomplicated; J44.9 Chronic obstructive pulmonary disease, unspecified
CPT/HCPCS: 36415; 71275; 80048; 80053; 82274; 82728; 83540; 83550; 83735; 83880; 84100; 84484; 85014; 85018; 85025; 85045; 85610; 85730; 86850; 86900; 86901; 93005; 93308; 94668; 97162; 97166; 97802; 99252; 99285; P9016; Q9957; Q9967; A4216; G0463; J1938; J2916